=== PATIENT | female | born 1995 | race Caucasian/White ===

== ENCOUNTER 2017-04-22 15:51 | Emergency (ER) | payer MEDICAID ==
[2017-04-22] MEDS ORDERED: BUTALB/ACETAMINOPHEN/CAFFEINE 1 TAB EACH PO ONE (16:08)
--- NOTE | 2017-04-22 16:33 | RADIOLOGY REPORT (SQ) ---
EXAM DESCRIPTION: CT HEAD WITHOUT COMPLETED DATE/TIME: 04/22/2017 4:22 pm REASON FOR STUDY: right sided headache COMPARISON: None. TECHNIQUE: Axial images acquired through the brain without intravenous contrast. Images reviewed wi th bone, brain and subdural windows. Images stored on PACS. All CT scanners at this facility use dose modulation, iterative reconstruction, and/or weight based d osing when appropriate to reduce radiation dose to as low as reasonably achievable (ALARA). [facility]: Dose Right [facility]: CareDose [facility]: Dose Right [facility]: Teradose 4D [facility]: [place] RADIATION DOSE: CT Rad equipment meets quality standard of care and radiation dose reduction techniq ues were employed. CTDIvol: 64.6 mGy. DLP: 1034 mGy-cm. mGy. LIMITATIONS: None. FINDINGS: VENTRICLES: Normal size and contour. CEREBRUM: No masses. No hemorrhage. No midline shift. No evidence for acute infarction. Normal gra y/white matter differentiation. No areas of low density in the white matter. CEREBELLUM: No masses. No hemorrhage. No alteration of density. No evidence for acute infarction. EXTRAAXIAL SPACES: No fluid collections. No masses. ORBITS AND GLOBE: No intra- or extraconal masses. Normal contour of globe without masses. CALVARIUM: No fracture. PARANASAL SINUSES: No fluid or mucosal thickening. SOFT TISSUES: No mass or hematoma. OTHER: No other significant finding. IMPRESSION: NORMAL BRAIN CT WITHOUT CONTRAST. EVIDENCE OF ACUTE STROKE: NO. COMMENT: Quality ID # [id number]: Final reports with documentation of one or more dose reduction techniques (e.g., Automated exposure control, adjustment of the mA and/or kV according to patient size, use of iterative reconstruction technique) TECHNICAL DOCUMENTATION: JOB ID: [id number] [employer]- All Rights Reserved
--- NOTE | 2017-04-22 16:48 | ER Document Report ---
ED Headache - General Chief Complaint: Headache Stated Complaint: HEAD PAIN Time Seen by Provider: 04/22/17 16:07 Mode of Arrival: Ambulatory Information source: Patient Notes: Patient presents with severe right-sided headache. Nothing makes it better or worse. It did not radiate. It is constant. She states she has had this headache for approximately 7 months and has been gradually getting worse. She states it feels like "my head is going to explode". No previous history of migraines. She states that her headache started during and have continued since the ended. She has no nausea or vomiting. She has noticed some blurriness of vision. No other weakness numbness or tingling. No history of trauma. No cough cold congestion or sinus disease. TRAVEL OUTSIDE OF THE [place] IN LAST 30 DAYS: No - Related Data Allergies/Adverse Reactions: No Known Allergies Allergy (Verified 04/22/17 15:56) Past Medical History - General Information source: Patient - Social History Smoking Status: Current Every Day Smoker Chew tobacco use (# tins/day): No Frequency of alcohol use: None Drug Abuse: None Family History: Reviewed & Not Pertinent Patient has suicidal ideation: No Patient has homicidal ideation: No Renal/ Medical History: Denies: Hx Peritoneal Dialysis Psychiatric Medical History: Reports: Hx Attention Deficit Hyperactivity Disorder, Hx Bipolar Disorder, Hx Depression Past Surgical History: Reports: Hx Abdominal Surgery - esophagus, feeding tube Review of Systems - Review of Systems Constitutional: denies: Chills, Fever Cardiovascular: denies: Chest pain, Palpitations Respiratory: denies: Cough, Short of breath -: Yes All other systems reviewed and negative Physical Exam - Vital signs Vitals: Temp Pulse Resp BP Pulse Ox 98.8 F 88 14 123/76 100 04/22/17 16:01 04/22/17 16:01 04/22/17 16:01 04/22/17 16:01 04/22/17 16:01 Interpretation: Hypertensive - General General appearance: Appears well, Alert - HEENT Head: Normocephalic, Atraumatic Eyes: Normal Pupils: PERRL - Respiratory Respiratory status: No respiratory distress Chest status: Nontender Breath sounds: Normal Chest palpation: Normal - Cardiovascular Rhythm: Regular Heart sounds: Normal auscultation Murmur: No - Abdominal Inspection: Normal Distension: No distension Bowel sounds: Normal Tenderness: Nontender Organomegaly: No organomegaly - Back Back: Normal, Nontender - Extremities General upper extremity: Normal inspection, Nontender, Normal color, Normal ROM , Normal temperature General lower extremity: Normal inspection, Nontender, Normal color, Normal ROM , Normal temperature, Normal weight bearing. 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 The right eye does appear to be able to move into all 4 quadrants although it does not track equally with the left. Cerebellar coordination: Other - Patient has right upper extremity weakness and lack of coordination since due to a brachial plexus injury otherwise there is no new appreciation of weakness or coordination deficits. Motor strength normal: LUE, LLE, RLE Additional motor exam normals: [employer] Sensory: Normal - Psychological Associated symptoms: Normal affect, Normal mood - Skin Skin Temperature: Warm Skin Moisture: Dry Skin Color: Normal Course - Vital Signs Vital signs: Temp Pulse Resp BP Pulse Ox 98.8 F 88 14 123/76 100 04/22/17 16:01 04/22/17 16:01 04/22/17 16:01 04/22/17 16:01 04/22/17 16:01 - Diagnostic Test Radiology reviewed: Image reviewed, Reports reviewed - Head CT shows no evidence of acute pathology Discharge - Discharge Clinical Impression: Migraine headache Qualifiers: Migraine type: other Status migrainosus presence: with status migrainosus Intractability: intractable Qualified Code(s): G43.811 - Other migraine, intractable, with status migrainosus Condition: Stable Disposition: HOME, SELF-CARE Instructions: Headache ([facility]) Additional Instructions: Your blood pressure is mildly elevated. Please have this rechecked in 1 week by your doctor. Prescriptions: Butalb/Acetaminophen/Caffeine [Fioricet (50-325-40 mg) Tablet] 1 - 2 tab PO Q4H #20 tab Forms: Elevated Blood Pressure, Return to Work Referrals: JOHNATHAN SELF MD [COMMUNITY BASED STAFF] - 04/30/17
[2017-04-22 17:02] VITALS: BP 99/78
== END 2017-04-22 17:02 | disposition home or self-care (01) ==
LOC: ER 15:51
DX: G43.911 Migraine, unspecified, intractable, with status migrainosus (principal); H53.8 Other visual disturbances; F17.200 Nicotine dependence, unspecified, uncomplicated; H47.091 Other disorders of optic nerve, not elsewhere classified, right eye; R53.1 Weakness; R27.9 Unspecified lack of coordination; S14.3XXS Injury of brachial plexus, sequela; X58.XXXS Exposure to other specified factors, sequela
CPT/HCPCS: 99284; 70450; J3490

== ENCOUNTER 2017-06-16 12:46 | Emergency (ER) | payer MEDICAID ==
[2017-06-16 14:43] LABS: APPEARANCE,URINE SLIGHTLY-CLOUDY; BILIRUBIN,URINE NEGATIVE (NEGATIVE); COLOR,URINE AMBER; GLUCOSE, URINE NEGATIVE (NEGATIVE); KETONES,URINE NEGATIVE (NEGATIVE); LEUKOCYTE ESTERASE,URINE SMALL (NEGATIVE); NITRITE,URINE NEGATIVE (NEGATIVE); PROTEIN,URINE 30 mg/dL (NEGATIVE); URINE SPECIFIC GRAVITY 1.026
[2017-06-16 15:08] LABS: BACTERIA (WET MOUNT) 3+ BACTERIA SEEN; EPITHELIALS (WET MOUNT) 3+ EPITHELIALS SEEN; RBCS (WET MOUNT) NO RBCS SEEN; T.VAGINALIS (WET MOUNT) NO TRICHOMONAS SEEN; WBCS (WET MOUNT) 1+ WBCS SEEN; YEAST (WET MOUNT) NO YEAST SEEN
--- NOTE | 2017-06-16 15:38 | RADIOLOGY REPORT (SQ) ---
EXAM DESCRIPTION: U/S OB TRANSVAG W/DOPPLER COMPLETED DATE/TIME: 06/16/2017 3:27 pm REASON FOR STUDY: pelvic pain COMPARISON: None. TECHNIQUE: Transvaginal static and realtime grayscale images acquired of the pelvis. Additional eh cted spectral and color Doppler images recorded. All images stored on PACs. BHCG: Pending. LIMITATIONS: None. FINDINGS: UTERUS: No visualized intrauterine . RIGHT ADNEXA: Normal ovary with normal vascular flow. No adnexal free fluid. No adnexal masses. LEFT ADNEXA: Normal ovary with normal vascular flow. No adnexal free fluid. No adnexal masses. FREE FLUID: None. OTHER: No other significant finding. IMPRESSION: NO VISUALIZED INTRA- OR EXTRAUTERINE . bHCG LEVEL NOT AVAILABLE FOR CORRELATION WITH US FINDINGS. ECTOPIC CANNOT BE EXCLUDED. FOLLOW-UP ULTRASOUND AND SERIAL BHCG LEVELS STRONGLY RECOMMENDED TO ACCURATELY ASSESS STATU S. TECHNICAL DOCUMENTATION: JOB ID: [id number] [employer]- All Rights Reserved
[2017-06-16] MEDS ORDERED: METRONIDAZOLE 500 MG TABLET PO ONE (16:12)
--- NOTE | 2017-06-16 16:15 | ER Document Report ---
HPI - HPI Pain Level: 1 Context: Patient is a 21-year-old female previous with stillborn at 32 weeks 9 months ago presents for evaluation. Admits to vaginal discharge with nausea for the past 3 weeks. States her last menstrual period was May 06. States she has not taken a test prior to arrival today. 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 Also history of right brachial plexus injury at . - CONSTITUTIONAL Constitutional: DENIES: Fever, Chills - EENT EENT: DENIES: Sore Throat, Ear Pain, Eye problems - NEURO Neurology: DENIES: Headache - CARDIOVASCULAR Cardiovascular: DENIES: Chest pain - RESPIRATORY Respiratory: DENIES: Trouble Breathing, Coughing - GASTROINTESTINAL Gastrointestinal: REPORTS: Abdominal Pain - lower. DENIES: Black / Bloody Stools - URINARY Urinary: DENIES: Dysuria, Urgency, Frequency - REPRODUCTIVE Reproductive: DENIES: : - MUSCULOSKELETAL Musculoskeletal: DENIES: Extremity pain Past Medical History - Social History Smoking Status: Current Every Day Smoker Chew tobacco use (# tins/day): No Frequency of alcohol use: None Drug Abuse: None Family History: Reviewed & Not Pertinent Patient has suicidal ideation: No Patient has homicidal ideation: No Renal/ Medical History: Denies: Hx Peritoneal Dialysis Psychiatric Medical History: Reports: Hx Attention Deficit Hyperactivity Disorder, Hx Bipolar Disorder, Hx Depression Past Surgical History: Reports: Hx Abdominal Surgery - esophagus, feeding tube Vertical Provider Document - CONSTITUTIONAL Agree With Documented VS: Yes Notes: PHYSICAL EXAM GENERAL: Alert, interacts well. LUNGS: Clear to auscultation bilaterally, no wheezes, rales, or rhonchi. No respiratory distress. HEART: Regular rate and rhythm. No murmurs, gallops, or rubs. ABDOMEN: Soft, nondistended, nontender. No guarding, rebound, or rigidity.. Bowel sounds present in all 4 quadrants. FEMALE : Normal external exam. No evidence of lesions, lacerations, bruising or vesicles. Speculum exam normal cervix closed. No evidence of vaginal discharge with odor. No evidence of lesions. No vaginal bleeding. NEUROLOGICAL: Alert and oriented x4. Normal speech. PSYCH: Normal affect, normal mood. SKIN: Warm, dry, normal turgor. No rashes or lesions noted. - INFECTION CONTROL TRAVEL OUTSIDE OF THE [place] IN LAST 30 DAYS: No - RESPIRATORY O2 Sat by Pulse Oximetry: 100 Course - Re-evaluation Re-evalutation: 06/16/17 16:12 Patient is a 21-year-old female is hemodynamically stable, no acute distress and afebrile. Patient with a beta-hCG of 220. Ultrasound does not show any evidence of extrauterine inflammation, free fluid. Patient's exam otherwise benign. Discussed with her to follow-up with the health department and to start taking vitamins. Patient's wet mount does show evidence of bacterial vaginosis. Will treat with Flagyl for 1 week. Otherwise patient is stable for discharge home. - Vital Signs Vital signs: Temp Pulse Resp BP Pulse Ox 99.1 F 93 H 16 113/71 100 06/16/17 13:19 06/16/17 13:19 06/16/17 13:19 06/16/17 13:19 06/16/17 13:19 - Laboratory Laboratory results interpreted by me: 06/16/17 06/16/17 14:15 14:40 Beta HCG, Quant 220.36 H Urine Protein 30 H Urine Urobilinogen 2.0 H Ur Leukocyte Esterase SMALL H Urine HCG, Qual POSITIVE H - Diagnostic Test Radiology reviewed: Reports reviewed Discharge - Discharge Clinical Impression: Bacterial vaginal infection Qualifiers: Weeks of gestation: less than 8 weeks Qualified Code(s): Z3A.01 - Less than 8 weeks gestation of Condition: Good Disposition: HOME, SELF-CARE Instructions: ([facility]), Vaginosis, Bacterial ([facility]) Prescriptions: Metronidazole [Flagyl 500 mg Tablet] 500 mg PO BID #14 tablet [facility] - 06/18/17
[2017-06-16 16:32] LABS: CHLAM PCR NOT DETECTED (NOT DETECT); GON PCR NOT DETECTED (NOT DETECT)
[2017-06-16 16:36] VITALS: BP 104/61
== END 2017-06-16 16:36 | disposition home or self-care (01) ==
LOC: ER 12:46
DX: O23.591 Infection of other part of genital tract in pregnancy, first trimester (principal); B96.89 Other specified bacterial agents as the cause of diseases classified elsewhere; O26.891 Other specified pregnancy related conditions, first trimester; R11.0 Nausea; R10.30 Lower abdominal pain, unspecified; O99.331 Smoking (tobacco) complicating pregnancy, first trimester; Z3A.01 Less than 8 weeks gestation of pregnancy; Z87.59 Personal history of other complications of pregnancy, childbirth and the puerperium
CPT/HCPCS: 99284; 36415; 87210; 84702; 81025; 81001; 87491; 87591; 76817; 93976; J3490

== ENCOUNTER → 2017-07-11 | Outpatient (CLI) | payer MEDICAID | LOC: LAB 16:18 | PROVIDERS: ATTEND Nurse Practitioner Women's Health | DX: O36.80X0 Pregnancy with inconclusive fetal viability, not applicable or unspecified (principal) | CPT/HCPCS: 36415; 84702 ==

== ENCOUNTER → 2017-07-16 | Outpatient (CLI) | payer MEDICAID ==
[2017-07-16 13:52] LABS: ANION GAP 11 (5-19); BLOOD UREA NITROGEN 7 mg/dL (7-20); CALCIUM 9.8 mg/dL (8.4-10.2); CARBON DIOXIDE 25 mmol/L (22-30); CHLORIDE 104 mmol/L (98-107); GLUCOSE 103 mg/dL (75-110); POTASSIUM 4.6 mmol/L (3.6-5.0)
== END ==
LOC: LAB 13:09
PROVIDERS: ATTEND Nurse Practitioner Family
DX: O36.80X0 Pregnancy with inconclusive fetal viability, not applicable or unspecified (principal); N28.81 Hypertrophy of kidney; R51 Headache; Z3A.00 Weeks of gestation of pregnancy not specified
CPT/HCPCS: 36415; 80048; 84702

== ENCOUNTER 2017-07-17 18:30 | Emergency (ER) | payer MEDICAID ==
--- NOTE | 2017-07-17 19:16 | ER Document Report ---
ED Medical Screen (RME) - General Chief Complaint: OB Problem (<20wks) Stated Complaint: ABDOMINAL PAIN Time Seen by Provider: 07/17/17 19:09 Notes: Patient presents from [facility] due to pelvic cramping and to rule out ectopic . Patient has not had a formal ultrasound to validate intrauterine . Denies any vaginal discharge loss of fluids or bleeding. LMP ~ mid May 2017 I have greeted and performed a rapid initial assessment of this patient. A comprehensive ED assessment and evaluation of the patient, analysis of test results and completion of the medical decision making process will be conducted by additional ED providers. PHYSICAL EXAMINATION: GENERAL: Well-appearing, well-nourished and in no acute distress. HEAD: Atraumatic, normocephalic. EYES: Pupils equal round extraocular movements intact, conjunctiva are normal. ENT: Nares patent NECK: Normal range of motion LUNGS: No respiratory distress Musculoskeletal: Normal range of motion NEUROLOGICAL: Normal speech, normal gait. PSYCH: Normal mood, normal affect. SKIN: Warm, Dry, normal turgor, no rashes or lesions noted. TRAVEL OUTSIDE OF THE [place] IN LAST 30 DAYS: No - Related Data Allergies/Adverse Reactions: No Known Allergies Allergy (Verified 07/17/17 18:31) Past Medical History - Social History Frequency of alcohol use: None Drug Abuse: None Renal/ Medical History: Denies: Hx Peritoneal Dialysis Psychiatric Medical History: Reports: Hx Attention Deficit Hyperactivity Disorder, Hx Bipolar Disorder, Hx Depression Past Surgical History: Reports: Hx Abdominal Surgery - esophagus, feeding tube, Hx Section - demise at 32wks Physical Exam - Vital signs Vitals: Temp Pulse Resp BP Pulse Ox 99.0 F 92 H 16 120/66 100 07/17/17 18:41 07/17/17 18:41 07/17/17 18:41 07/17/17 18:41 07/17/17 18:41 Course - Vital Signs Vital signs: Temp Pulse Resp BP Pulse Ox 99.0 F 92 H 16 120/66 100 07/17/17 18:41 07/17/17 18:41 07/17/17 18:41 07/17/17 18:41 07/17/17 18:41
[2017-07-17 19:57] LABS: APPEARANCE,URINE SLIGHTLY-CLOUDY; BILIRUBIN,URINE NEGATIVE (NEGATIVE); COLOR,URINE YELLOW; GLUCOSE, URINE 50 mg/dL (NEGATIVE); KETONES,URINE NEGATIVE (NEGATIVE); LEUKOCYTE ESTERASE,URINE MODERATE (NEGATIVE); NITRITE,URINE NEGATIVE (NEGATIVE); PROTEIN,URINE NEGATIVE (NEGATIVE); URINE SPECIFIC GRAVITY 1.023; UROBILINOGEN,URINE NEGATIVE mg/dL (<2.0)
--- NOTE | 2017-07-17 20:34 | RADIOLOGY REPORT (SQ) ---
EXAM DESCRIPTION: U/S 1TRIMESTER/1GEST W/DOPPLER COMPLETED DATE/TIME: 07/17/2017 8:25 pm REASON FOR STUDY: r/o ectopic COMPARISON: 06/16/2017 TECHNIQUE: Transvaginal static and realtime grayscale images acquired of the pelvis. Additional eh cted spectral and color Doppler images recorded. All images stored on PACs. bHCG: Not available. LIMITATIONS: None. FINDINGS: FETUS: Living intrauterine . EGA: A weeks 3 days OWEN: 02/23/2018 FHR: 168 beats per minute. SUBCHORIONIC BLEED: Yes SIZE OF BLEED: 1.0 x 1.2 x 2.2 cm. UTERUS: No masses. No anomalies. CERVICAL LENGTH: 2.2 cm Closed. RIGHT ADNEXA: Normal ovary with normal vascular flow in corpus luteal cyst. No adnexal free fluid. No adnexal masses. LEFT ADNEXA: Ovary not identified. No adnexal free fluid. No adnexal masses. FREE FLUID: None. OTHER: No other significant finding. IMPRESSION: LIVING INTRAUTERINE . EGA 8 WEEKS 3 DAYS. SMALL SUBCHORIONIC HEMATOMA. Trimester of : First - 0 to 13 weeks. TECHNICAL DOCUMENTATION: JOB ID: [id number] [employer]- All Rights Reserved Reading location - IP/workstation name: [email or web address]
--- NOTE | 2017-07-17 21:29 | ER Document Report ---
ED General - General Chief Complaint: OB Problem (<20wks) Stated Complaint: ABDOMINAL PAIN Time Seen by Provider: 07/17/17 19:09 Notes: Patient is a 21 year old female who presents with concerns of 1 week of lower abdominal pain. The patient is following with the health department, has not yet had an ultrasound confirming an intrauterine , was increasingly concerned about her ongoing abdominal pain. She describes this as an intermittent, cramping, aching lower abdominal pain. Nothing improves or worsens that pain. She had a loss of a previous at 32 weeks gestation and did require for removal of the fetus. She denies any vaginal bleeding or vaginal discharge. No dysuria, vomiting, or diarrhea. No prior history of ectopic pregnancies or pelvic inflammatory disease. TRAVEL OUTSIDE OF THE [place] IN LAST 30 DAYS: No - Related Data Allergies/Adverse Reactions: No Known Allergies Allergy (Verified 07/17/17 18:31) Past Medical History - General Information source: Patient - Social History Smoking Status: Current Some Day Smoker Frequency of alcohol use: None Drug Abuse: None Lives with: Spouse/Significant other Family History: Reviewed & Not Pertinent Patient has suicidal ideation: No Patient has homicidal ideation: No Renal/ Medical History: Denies: Hx Peritoneal Dialysis Psychiatric Medical History: Reports: Hx Attention Deficit Hyperactivity Disorder, Hx Bipolar Disorder, Hx Depression Past Surgical History: Reports: Hx Abdominal Surgery - esophagus, feeding tube, Hx Section - demise at 32wks Review of Systems - Review of Systems Notes: Constitutional: Negative for fever. HENT: Negative for sore throat. Eyes: Negative for visual changes. Cardiovascular: Negative for chest pain. Respiratory: Negative for shortness of breath. Gastrointestinal: Positive for lower abdominal pain Genitourinary: Negative for dysuria. Musculoskeletal: Negative for back pain. Skin: Negative for rash. Neurological: Negative for headaches, weakness or numbness. 10 point ROS negative except as marked above and in HPI. Physical Exam - Vital signs Vitals: Temp Pulse Resp BP Pulse Ox 99.0 F 92 H 16 120/66 100 07/17/17 18:41 07/17/17 18:41 07/17/17 18:41 07/17/17 18:41 07/17/17 18:41 Interpretation: Normal Notes: PHYSICAL EXAMINATION: GENERAL: Well-appearing, well-nourished and in no acute distress. HEAD: Atraumatic, normocephalic. EYES: Pupils equal round and reactive to light, extraocular movements intact, sclera anicteric, conjunctiva are normal. ENT: nares patent, oropharynx clear without exudates. Moist mucous membranes. NECK: Normal range of motion, supple without lymphadenopathy LUNGS: Breath sounds clear to auscultation bilaterally and equal. No wheezes rales or rhonchi. HEART: Regular rate and rhythm without murmurs ABDOMEN: Soft, nontender, normoactive bowel sounds. No guarding, no rebound. No masses appreciated. EXTREMITIES: Normal range of motion, no pitting or edema. No cyanosis. NEUROLOGICAL: No focal neurological deficits. Moves all extremities spontaneously and on command. PSYCH: Normal mood, normal affect. SKIN: Warm, Dry, normal turgor, no rashes or lesions noted. Course - Re-evaluation Re-evalutation: 07/17/17 21:28 Patient is currently and presenting with lower abdominal pain. No vaginal bleeding or discharge. Ultrasound shows a viable intrauterine , appropriate cardiac activity and active movement. Patient denies any dysuria and urinalysis is not consistent with an acute urinary tract infection. The patient does not have any focal right lower quadrant tenderness , rebound or guarding to suggest acute appendicitis. No right upper quadrant tenderness to suggest cholestasis of or an acute cholecystitis. Patient has tolerated oral intake here in the emergency department without difficulty. Vitals are within normal limits. No vaginal bleeding. At this time will discharge with return precautions and follow-up recommendations. Verbal discharge instructions given a the bedside and opportunity for questions given. Medication warnings reviewed. Patient is in agreement with this plan and has verbalized understanding of return precautions and the need for primary care follow-up in the next 24-72 hours. - Vital Signs Vital signs: Temp Pulse Resp BP Pulse Ox 97.8 F 79 16 113/59 L 100 07/17/17 21:40 07/17/17 21:40 07/17/17 21:40 07/17/17 21:40 07/17/17 21:40 - Laboratory Laboratory results interpreted by me: 07/17/17 07/17/17 19:20 19:39 Beta HCG, Quant 065598.00 H Urine Glucose (UA) 50 H Ur Leukocyte Esterase MODERATE H - Diagnostic Test Radiology reviewed: Reports reviewed Discharge - Discharge Clinical Impression: First trimester , related bilateral lower abdominal pain, antepartum Condition: Good Disposition: HOME, SELF-CARE Additional Instructions: You were seen for abdominal pain during . Your ultrasound and labs are normal today. The exact cause your pain is uncertain but is likely related to your developing baby. Please follow-up with your [employer]ATOR in the next 24-48 hours. Return to the emergency department immediately if you have worsening of your pain, have persistent vomiting, develop a fever of greater than 100.4F, begin to have vaginal bleeding, or any other symptoms that are worrisome to you.
[2017-07-17 21:41] VITALS: BP 113/59
== END 2017-07-17 21:46 | disposition home or self-care (01) ==
LOC: ER 18:30
DX: O26.891 Other specified pregnancy related conditions, first trimester (principal); R10.31 Right lower quadrant pain; R10.32 Left lower quadrant pain; Z3A.08 8 weeks gestation of pregnancy; F17.200 Nicotine dependence, unspecified, uncomplicated
CPT/HCPCS: 36415; 76801; 81001; 84702; 93976; 99284

== ENCOUNTER 2017-09-01 08:46 | Emergency (ER) | payer MEDICAID ==
--- NOTE | 2017-09-01 09:44 | ER Document Report ---
ED GI/ - General Chief Complaint: Abdominal Cramping Stated Complaint: ABDOMINAL PAIN Time Seen by Provider: 09/01/17 09:39 Notes: The patient is a 21-year-old female, [id number] , presents with several days of lower abdominal cramping. She had a 32 week miscarriage several months ago. Denies vaginal bleeding, dysuria, hematuria, flank pain, leakage of fluids, nausea or vomiting. TRAVEL OUTSIDE OF THE [place] IN LAST 30 DAYS: No - Related Data Allergies/Adverse Reactions: No Known Allergies Allergy (Verified 09/01/17 08:46) Past Medical History - General Information source: Patient - Social History Smoking Status: Current Every Day Smoker Chew tobacco use (# tins/day): No Frequency of alcohol use: None Drug Abuse: None Family History: Reviewed & Not Pertinent Patient has suicidal ideation: No Patient has homicidal ideation: No Renal/ Medical History: Denies: Hx Peritoneal Dialysis Psychiatric Medical History: Reports: Hx Attention Deficit Hyperactivity Disorder, Hx Bipolar Disorder, Hx Depression Past Surgical History: Reports: Hx Abdominal Surgery - esophagus, feeding tube, Hx Section - demise at 32wks Review of Systems - Review of Systems Notes: REVIEW OF SYSTEMS: CONSTITUTIONAL: -fevers, -chills EENT: -eye pain, -difficulty swallowing, -nasal congestion CARDIOVASCULAR: -chest pain, -syncope. RESPIRATORY: -cough, -SOB GASTROINTESTINAL: +abdominal cramping, -nausea, -vomiting, -diarrhea GENITOURINARY: -dysuria, -hematuria MUSCULOSKELETAL: -back pain, -neck pain SKIN: -rash or skin lesions. HEMATOLOGIC: -easy bruising or bleeding. LYMPHATIC: -swollen, enlarged glands. NEUROLOGICAL: -altered mental status or loss of consciousness, -headache, - neurologic symptoms PSYCHIATRIC: -anxiety, -depression. ALL OTHER SYSTEMS REVIEWED AND NEGATIVE. Physical Exam - Vital signs Vitals: Temp Pulse Resp BP Pulse Ox 98.8 F 102 H 16 106/55 L 97 09/01/17 08:58 09/01/17 08:58 09/01/17 08:58 09/01/17 08:58 09/01/17 08:58 - Notes Notes: PHYSICAL EXAMINATION: GENERAL: Well-appearing, well-nourished and in no acute distress. HEAD: Atraumatic, normocephalic. EYES: Pupils equal round and reactive to light, extraocular movements intact, sclera anicteric, conjunctiva are normal. ENT: nares patent, oropharynx clear without exudates. Moist mucous membranes. NECK: Normal range of motion, supple without lymphadenopathy LUNGS: Breath sounds clear to auscultation bilaterally and equal. No wheezes rales or rhonchi. HEART: Regular rate and rhythm without murmurs ABDOMEN: Soft, nontender, normoactive bowel sounds. No guarding, no rebound. No masses appreciated. EXTREMITIES: Normal range of motion, no pitting or edema. No cyanosis. NEUROLOGICAL: Cranial nerves grossly intact. Normal speech, normal gait. Normal sensory and motor exams. PSYCH: Normal mood, normal affect. SKIN: Warm, Dry, normal turgor, no rashes or lesions noted. Course - Re-evaluation Re-evalutation: Bedside US shows a single IUP with FHR 152 and BPD consistent with [id number]. Urinalysis does not show evidence of a UTI she has no abdominal tenderness, vaginal bleeding or leakage of fluids. She has an appointment with OB. Instructed her to follow-up as scheduled. - Vital Signs Vital signs: Temp Pulse Resp BP Pulse Ox 98.8 F 102 H 16 106/55 L 97 09/01/17 08:58 09/01/17 08:58 09/01/17 08:58 09/01/17 08:58 09/01/17 08:58 - Laboratory Laboratory results interpreted by me: 09/01/17 09:50 Urine Urobilinogen 2.0 H Ur Leukocyte Esterase TRACE H Discharge - Discharge Clinical Impression: Abdominal cramping affecting Condition: Stable Disposition: HOME, SELF-CARE Additional Instructions: Your bedside ultrasound today shows a single intrauterine fetus and it is consistent with your dates and has a normal heart rate. Follow-up with your OB as scheduled. Tylenol for any pain and stay hydrated by drinking plenty of water. : You are . care is best started as early in as possible. If you're unsure about continuing this , you should discuss this with your physician or with harvest worker [facility] at [facility]. You should take only medications approved by your physician. Acetaminophen can safely be taken for minor pains. As a rule, medication for chronic conditions such as asthma or seizures can safely be continued. You should discuss with the physician every medicine you take. Any regular exercise program can be continued. Talk to your physician, however, before engaging in competitive or demanding sports. Alcohol, smoking, and "street drugs" are dangerous to your baby. Cocaine is especially dangerous. Don't use any illicit drugs! THREATENED MISCARRIAGE: You have been evaluated for a possible miscarriage. At this time, there is no indication that a miscarriage will occur. Most women with your symptoms will go on to have a perfectly normal baby. However, careful observation will be necessary. A miscarriage occurs when the fetus is abnormal. There is no medicine or treatment for it. You should rest in bed until the symptoms have resolved. Do not douche or have sex for at least a week, or until OK'd by the doctor. Call the doctor or return for re-examination if there is an increase in bleeding or cramping, or passage of tissue. FOLLOW-UP CARE: If you have been referred to a physician for follow-up care, call the physician s office for an appointment as you were instructed or within the next two days. If you experience worsening or a significant change in your symptoms (very heavy bleeding with large clots of blood, passage of tissue, more severe abdominal / pelvic pain or cramping, feeling faint or severe weakness, fever, etc.), notify the physician immediately or return to the Emergency Department at any time for re-evaluation. OBSTETRIC-GYNECOLOGIC (OB-HONING MACHINE SET UP OPERATOR TOOL) PHYSICIANS IN [place]: The [facility] [address] [place], [place] [phone] [facility] [address] [place] [address] [phone] For active duty and dependents diagnosed with a threatened or miscarriage, you should follow up in the following manner: Standard patients who have a local civilian provider should follow up with that provider. Patients of the Family Practice Clinic should call your Team Nurse at 8: 00 am the following morning for further instructions. If you are neither a Standard patient nor a patient of the Family Practice Clinic, you should follow up at the [facility] ([facility]) . Patients already enrolled in the [facility] OB Clinic, Prime patients not assigned to the Family Practice Clinic, and Active Duty patients not assigned to Family Practice Clinic should report to the [facility] Lab at 8:00 am the next morning that the [facility] OB Clinic is open and then you will be seen in the OB Clinic at 11:00 am. Referrals: CLAUDIA FERMIN MD [ACTIVE STAFF] - Follow up as needed
[2017-09-01 10:14] LABS: APPEARANCE,URINE SLIGHTLY-CLOUDY; BILIRUBIN,URINE NEGATIVE (NEGATIVE); COLOR,URINE YELLOW; GLUCOSE, URINE NEGATIVE (NEGATIVE); KETONES,URINE NEGATIVE (NEGATIVE); LEUKOCYTE ESTERASE,URINE TRACE (NEGATIVE); NITRITE,URINE NEGATIVE (NEGATIVE); PROTEIN,URINE NEGATIVE (NEGATIVE); URINE SPECIFIC GRAVITY 1.025
[2017-09-01 11:13] VITALS: BP 102/59
== END 2017-09-01 11:13 | disposition home or self-care (01) ==
LOC: ER 08:46
DX: O26.892 Other specified pregnancy related conditions, second trimester (principal); R10.30 Lower abdominal pain, unspecified; O99.332 Smoking (tobacco) complicating pregnancy, second trimester; Z3A.15 15 weeks gestation of pregnancy; Z87.59 Personal history of other complications of pregnancy, childbirth and the puerperium
CPT/HCPCS: 81001; 99284

== ENCOUNTER 2017-10-01 17:28 | Emergency (ER) | payer MEDICAID ==
[2017-10-01 17:36] VITALS: BP 120/63
--- NOTE | 2017-10-01 18:13 | ER Document Report ---
ED Headache - General Chief Complaint: Headache Stated Complaint: HEADACHE Time Seen by Provider: 10/01/17 18:10 Notes: Chief complaint: Headache History of complain:( obtained from----patient) 22 years old female who is 20 week . She states that he is a high risk . Presents today with several month history of headache. She was here in the past and had CAT scan done. The headache is persistent with on and off exacerbation. Denies any nausea vomiting. Denies any focal weakness numbness tingling sensation. Onset: As above Duration: Last several months Severity: Moderate to severe Quality: Sharp Context: Possible neck sprain Exacerbating factor and relieving factors: None REVIEW OF SYSTEMS: CONSTITUTIONAL : Denies fever, chills, or sweats. Denies recent illness. EENT: Denies eye, ear, throat, or mouth pain or symptoms. Denies nasal or sinus congestion or discharge. Denies throat, tongue, or mouth swelling or difficulty swallowing. CARDIOVASCULAR: Denies chest pain. Denies palpitations or racing or irregular heart beat. Denies ankle edema. RESPIRATORY: Denies cough, cold, or chest congestion. Denies shortness of breath, difficulty breathing, or wheezing. GASTROINTESTINAL: Denies distention. Denies nausea, vomiting, or diarrhea. Denies blood in vomitus, stools, or per rectum. Denies black, tarry stools. Denies constipation. GENITOURINARY: Denies difficulty urinating, painful urination, burning, frequency, blood in urine, or discharge. FEMALE GENITOURINARY: Denies vaginal bleeding, heavy or abnormal periods, irregular periods. Denies vaginal discharge or odor. MUSCULOSKELETAL: Denies back or neck pain or stiffness. Denies joint pain or swelling. SKIN: Denies rash, lesions or sores. HEMATOLOGIC : Denies easy bruising or bleeding. LYMPHATIC: Denies swollen, enlarged glands. NEUROLOGICAL: Denies confusion or altered mental status. Denies passing out or loss of consciousness. Denies dizziness or lightheadedness. Denies headache. Denies weakness or paralysis or loss of use of either side. Denies problems with gait or speech. Denies sensory loss, numbness, or tingling. Denies seizures. PSYCHIATRIC: Denies anxiety or stress. Denies depression, suicidal ideation, or homicidal ideation. ALL OTHER SYSTEMS REVIEWED AND NEGATIVE. PHYSICAL EXAMINATION: GENERAL: Well-appearing, well-nourished and in no acute distress. HEAD: Atraumatic, normocephalic. EYES: Pupils equal round and reactive to light, extraocular movements intact, conjunctiva are normal. ENT: Nares patent, oropharynx clear without exudates. Moist mucous membranes. NECK: Examination of the neck paraspinal muscles were extremely tender on palpation. Normal range of motion, supple without lymphadenopathy LUNGS: Breath sounds clear to auscultation bilaterally and equal. No wheezes rales or rhonchi. HEART: Regular rate and rhythm without murmurs ABDOMEN: Soft, nontender, nondistended abdomen. No guarding, no rebound. No masses appreciated. Examination of genitals-deferred Musculoskeletal: Normal range of motion, no pitting or edema. No cyanosis. NEUROLOGICAL: Cranial nerves grossly intact. Normal speech, normal gait. Normal sensory, motor exams PSYCH: Normal mood, normal affect. SKIN: Warm, Dry, normal turgor, no rashes or lesions noted. Dictation was performed using [employer] voice recognition software TRAVEL OUTSIDE OF THE [place] IN LAST 30 DAYS: No - Related Data Allergies/Adverse Reactions: No Known Allergies Allergy (Verified 10/01/17 17:33) Past Medical History - Social History Smoking Status: Current Every Day Smoker Cigarette use (# per day): No Chew tobacco use (# tins/day): No Family History: Reviewed & Not Pertinent Patient has suicidal ideation: No Patient has homicidal ideation: No Renal/ Medical History: Denies: Hx Peritoneal Dialysis Psychiatric Medical History: Reports: Hx Attention Deficit Hyperactivity Disorder, Hx Bipolar Disorder, Hx Depression Past Surgical History: Reports: Hx Abdominal Surgery - esophagus, feeding tube, Hx Section - demise at 32wks Review of Systems - Review of Systems Notes: Dictated Physical Exam - Vital signs Vitals: Temp Pulse Resp BP Pulse Ox 98.7 F 86 18 120/63 100 10/01/17 17:35 10/01/17 17:35 10/01/17 17:35 10/01/17 17:35 10/01/17 17:35 - Notes Notes: Dictated Course - Re-evaluation Re-evalutation: 10/01/17 18:12 Patient was explained that since she is especially high risk that I cannot give anything other than Tylenol. She has been asked to follow- up with her primary care physician for possible referral to chiropractor. - Vital Signs Vital signs: Temp Pulse Resp BP Pulse Ox 98.7 F 86 18 120/63 100 10/01/17 17:35 10/01/17 17:35 10/01/17 17:35 10/01/17 17:35 10/01/17 17:35 Discharge - Discharge Clinical Impression: Chronic headache Qualifiers: Headache type: tension-type Intractability: intractable Qualified Code(s): G44.221 - Chronic tension-type headache, intractable Cervical sprain Qualifiers: Encounter type: initial encounter Qualified Code(s): S13.9XXA - Sprain of joints and ligaments of unspecified parts of neck, initial encounter Condition: Fair Disposition: HOME, SELF-CARE Instructions: Headache ([facility]) Referrals: TAMIE MELTON MD [Primary Care Provider] - Follow up as needed
== END 2017-10-01 18:15 | disposition home or self-care (01) ==
LOC: ER 17:28
DX: O99.352 Diseases of the nervous system complicating pregnancy, second trimester (principal); G44.221 Chronic tension-type headache, intractable; O9A.212 Injury, poisoning and certain other consequences of external causes complicating pregnancy, second trimester; S13.9XXA Sprain of joints and ligaments of unspecified parts of neck, initial encounter; O99.332 Smoking (tobacco) complicating pregnancy, second trimester; Z3A.20 20 weeks gestation of pregnancy
CPT/HCPCS: 99283

== ENCOUNTER 2017-10-14 15:31 | Emergency (ER) | payer MEDICAID ==
[2017-10-14] MEDS ORDERED: LIDOCAINE 5% (700 MG) TRANSDERMAL ADH..PATCH TP ONE (18:23)
--- NOTE | 2017-10-14 18:23 | ER Document Report ---
ED General - General Chief Complaint: Leg Pain Stated Complaint: RIGHT LEG PAIN Time Seen by Provider: 10/14/17 16:41 TRAVEL OUTSIDE OF THE [place] IN LAST 30 DAYS: No - HPI Patient complains to provider of: Right leg pain Notes: Patient was sent in from [facility]ELOP[facility]NAGER's office due to right leg pain states pain goes down from her buttocks down the back of her right leg into her heel. Patient is approximate 7 months . Patient denies any injuries denies any vaginal bleeding abdominal pain fever chills nausea vomiting diarrhea denies a history of DVT in the past - Related Data Allergies/Adverse Reactions: No Known Allergies Allergy (Verified 10/14/17 15:33) Past Medical History - Social History Smoking Status: Current Every Day Smoker Chew tobacco use (# tins/day): No Frequency of alcohol use: None Drug Abuse: None Family History: Reviewed & Not Pertinent Patient has suicidal ideation: No Patient has homicidal ideation: No Renal/ Medical History: Denies: Hx Peritoneal Dialysis Psychiatric Medical History: Reports: Hx Attention Deficit Hyperactivity Disorder, Hx Bipolar Disorder, Hx Depression Past Surgical History: Reports: Hx Abdominal Surgery - esophagus, feeding tube, Hx Section - demise at 32wks Review of Systems - Review of Systems Constitutional: No symptoms reported EENT: No symptoms reported Cardiovascular: No symptoms reported Respiratory: No symptoms reported Gastrointestinal: No symptoms reported Genitourinary: No symptoms reported Female Genitourinary: No symptoms reported Musculoskeletal: Other - Leg pain Skin: No symptoms reported Hematologic/Lymphatic: No symptoms reported Neurological/Psychological: No symptoms reported Physical Exam - Vital signs Vitals: Temp Pulse Resp BP Pulse Ox 98.6 F 97 20 111/62 98 10/14/17 15:49 10/14/17 15:49 10/14/17 15:49 10/14/17 15:49 10/14/17 15:49 Interpretation: Normal - General General appearance: Appears well, Alert - HEENT Head: Normocephalic, Atraumatic Eyes: Normal Pupils: PERRL - Respiratory Respiratory status: No respiratory distress Chest status: Nontender Breath sounds: Normal Chest palpation: Normal - Cardiovascular Rhythm: Regular Heart sounds: Normal auscultation Murmur: No - Abdominal Inspection: Normal Distension: No distension Bowel sounds: Normal Tenderness: Nontender Organomegaly: No organomegaly - Back Back: Normal, Nontender - Extremities General upper extremity: Normal inspection, Nontender, Normal color, Normal ROM , Normal temperature General lower extremity: Normal inspection, Nontender, Normal color, Normal ROM , Normal temperature, Normal weight bearing, Other - Symmetric shape patient does have some reproduction of symptoms when sitting on her right buttocks. No : Edema, Ilsa's sign - Neurological Neuro grossly intact: Yes Cognition: Normal Orientation: AAOx4 Burton Coma Scale Eye Opening: Spontaneous Burton Coma Scale Verbal: Oriented Timoteo Coma Scale Motor: Obeys Commands Timoteo Coma Scale Total: 15 Speech: Normal Motor strength normal: LUE, RUE, LLE, RLE Sensory: Normal - Psychological Associated symptoms: Normal affect, Normal mood - Skin Skin Temperature: Warm Skin Moisture: Dry Skin Color: Normal Course - Re-evaluation Re-evalutation: 10/14/17 21:04 Ultrasound negative for DVT signs and symptoms are more consistent with sciatica. Patient is continue with Tylenol and also recommended lidocaine patches - Vital Signs Vital signs: Temp Pulse Resp BP Pulse Ox 98.2 F 72 16 110/47 L 100 10/14/17 18:26 10/14/17 18:26 10/14/17 18:26 10/14/17 18:26 10/14/17 18:26 Discharge - Discharge Clinical Impression: Right leg pain Qualifiers: Weeks of gestation: unspecified Qualified Code(s): Z34.90 - Encounter for supervision of normal , unspecified, unspecified trimester Condition: Good Disposition: HOME, SELF-CARE Instructions: Leg Pain Nonspecific ([facility]), Sciatica ([facility]) Additional Instructions: Your evaluation today shows no signs of a DVT. Her symptoms sound more consistent with sciatica or pain involving the nerve that runs from the top of the leg behind the thigh and behind the knee into the heel. Because you are treatment modality will mostly consist of Tylenol he may try the over- the-counter lidocaine patches return to the ER if symptoms worsen high recommend follow-up with your primary care physician. Referrals: TAMIE MELTON MD [Primary Care Provider] - Follow up in 3-5 days
[2017-10-14 18:28] VITALS: BP 110/47
== END 2017-10-14 18:38 | disposition home or self-care (01) ==
LOC: ER 15:31
DX: O26.892 Other specified pregnancy related conditions, second trimester (principal); M79.604 Pain in right leg; Z3A.22 22 weeks gestation of pregnancy; O99.332 Smoking (tobacco) complicating pregnancy, second trimester
CPT/HCPCS: 99283; 93971; J3490

== ENCOUNTER 2017-11-18 17:57 | Emergency (ER) | payer MEDICAID ==
[2017-11-18] MEDS ORDERED: PREDNISONE 20 MG TABLET PO ONE (18:46)
--- NOTE | 2017-11-18 18:51 | ER Document Report ---
HPI - HPI Patient complains to provider of: Sore throat Pain Level: 3 Context: Patient is a 22-year-old female 27 weeks complaining of a sore throat intermittently 5-6 weeks. Patient was seen by her PCM recently had a negative strep. Patient denies any fever. Associated Symptoms: None Exacerbated by: Denies Relieved by: Denies - ROS Systems Reviewed and Negative: Yes All other systems reviewed and negative - EENT EENT: REPORTS: Sore Throat - RESPIRATORY Respiratory: REPORTS: Trouble Breathing - REPRODUCTIVE Reproductive: DENIES: : Past Medical History - General Information source: Patient - Social History Smoking Status: Current Every Day Smoker Frequency of alcohol use: None Drug Abuse: None Lives with: Family Family History: Reviewed & Not Pertinent Patient has suicidal ideation: No Patient has homicidal ideation: No Renal/ Medical History: Denies: Hx Peritoneal Dialysis Psychiatric Medical History: Reports: Hx Attention Deficit Hyperactivity Disorder, Hx Bipolar Disorder, Hx Depression Past Surgical History: Reports: Hx Abdominal Surgery - esophagus, feeding tube, Hx Section - demise at 32wks Vertical Provider Document - CONSTITUTIONAL Agree With Documented VS: Yes Exam Limitations: No Limitations - INFECTION CONTROL TRAVEL OUTSIDE OF THE [place] IN LAST 30 DAYS: No - HEENT HEENT: Atraumatic, PERRLA, Pharyngeal Tenderness, Pharyngeal Erythema Notes: Uvula mildly edematous. No signs of peritonsillar cellulitis or abscess. Course - Re-evaluation Re-evalutation: 11/18/17 18:48 No airway compromise. Patient talking and swallowing without difficulty. Course of oral steroid prescribed. Home care, PCM follow-up and ED return precautions were discussed with the patient. Patient agreeable with plan and stable for discharge Discharge - Discharge Clinical Impression: Sore throat Condition: Stable Disposition: HOME, SELF-CARE Instructions: Sore Throat ([facility]), Steroid Medication Additional Instructions: Take oral steroids as prescribed. Lozenges salt water gargles for comfort Follow-up with your primary care for further evaluation and treatment if symptoms persist Prescriptions: Prednisone 20 mg PO BID #20 tablet Referrals: TAMIE MELTON MD [Primary Care Provider] - Follow up as needed
== END 2017-11-18 19:07 | disposition home or self-care (01) ==
LOC: ER 17:57
DX: O26.93 Pregnancy related conditions, unspecified, third trimester (principal); J02.9 Acute pharyngitis, unspecified; Z3A.32 32 weeks gestation of pregnancy
CPT/HCPCS: 99282; J7512

== ENCOUNTER 2017-11-27 17:35 | Outpatient (CLI) | payer MEDICAID ==
[2017-11-27 18:32] LABS: APPEARANCE,URINE CLOUDY; BILIRUBIN,URINE NEGATIVE (NEGATIVE); COLOR,URINE YELLOW; GLUCOSE, URINE 50 mg/dL (NEGATIVE); KETONES,URINE NEGATIVE (NEGATIVE); LEUKOCYTE ESTERASE,URINE SMALL (NEGATIVE); NITRITE,URINE NEGATIVE (NEGATIVE); PROTEIN,URINE 100 mg/dL (NEGATIVE); URINE SPECIFIC GRAVITY 1.035; UROBILINOGEN,URINE NEGATIVE mg/dL (<2.0)
[2017-11-27 18:51] LABS: URINE AMPHETAMINES SCREEN NEGATIVE; URINE BARBITURATES SCREEN NEGATIVE; URINE BENZODIAZEPINES SCREEN NEGATIVE; URINE COCAINE SCREEN NEGATIVE; URINE MARIJUANA (THC) SCREEN NEGATIVE; URINE METHADONE SCREEN NEGATIVE; URINE PHENCYCLIDINE SCREEN NEGATIVE
== END 2017-11-27 21:13 | disposition home or self-care (01) ==
LOC: LC 17:35
PROVIDERS: ATTEND Obstetrics & Gynecology
PROC: 4A1HXCZ Monitoring of Products of Conception, Cardiac Rate, External Approach (ICD-10-PCS; principal; 2017-11-27)
DX: O47.03 False labor before 37 completed weeks of gestation, third trimester (principal); Z3A.28 28 weeks gestation of pregnancy
CPT/HCPCS: 80307; 81001

== ENCOUNTER 2017-12-24 11:07 | Outpatient (CLI) | payer MEDICAID ==
--- NOTE | 2017-12-24 12:26 | Non Stress Test Report ---
Non Stress Test Datetime Report Generated by CPN: 12/24/2017 12:26 DEMOGRAPHIC EGA NST: 32.0 INDICATION Indication for Study: Ordered by Provider Indication for Study (NST) Other: lc VITAL SIGNS Temperature - NST: 98.5 RESP - NST: 5 MONITORING Monitor Explained: Monitor Explained; Test Explained; Patient Verbalized Understanding Time on Monitor: 12/24/2017 11:25 Time off Monitor: 12/24/2017 12:11 NST Duration: 46 NST INTERVENTIONS NST Interventions: PO Hydration; Reposition Patient Physician Notified NST: K Gan CNM BABY A: [id number] BABY A Movement : Present Contraction Frequency : rare FHR Baseline : 120 Accelerations : 15X15 Decelerations : None Variability : Moderate 6-25bpm NST Review: Meets Criteria for Reactive NST NST Review and Verified By : Henrique Gallardo RN NST Results: Reactive NST REPORT Report Trigger: Send Report
[2017-12-24 13:51] LABS: APPEARANCE,URINE SLIGHTLY-CLOUDY; BILIRUBIN,URINE NEGATIVE (NEGATIVE); COLOR,URINE YELLOW; GLUCOSE, URINE NEGATIVE (NEGATIVE); KETONES,URINE NEGATIVE (NEGATIVE); LEUKOCYTE ESTERASE,URINE MODERATE (NEGATIVE); NITRITE,URINE NEGATIVE (NEGATIVE); PROTEIN,URINE NEGATIVE (NEGATIVE); URINE SPECIFIC GRAVITY 1.018
[2017-12-24 14:13] LABS: URINE AMPHETAMINES SCREEN NEGATIVE; URINE BARBITURATES SCREEN NEGATIVE; URINE BENZODIAZEPINES SCREEN NEGATIVE; URINE COCAINE SCREEN NEGATIVE; URINE METHADONE SCREEN NEGATIVE; URINE PHENCYCLIDINE SCREEN NEGATIVE
[2017-12-24 14:22] LABS: URINE MARIJUANA (THC) SCREEN UNCONFIRMED POSITIVE
== END 2017-12-24 12:30 | disposition home or self-care (01) ==
LOC: LC 11:07
PROVIDERS: ATTEND Obstetrics & Gynecology
PROC: 4A1HXCZ Monitoring of Products of Conception, Cardiac Rate, External Approach (ICD-10-PCS; principal; 2017-12-24)
DX: Z34.93 Encounter for supervision of normal pregnancy, unspecified, third trimester (principal); Z3A.32 32 weeks gestation of pregnancy
CPT/HCPCS: 59025; 80307; 81001

== ENCOUNTER 2017-12-31 02:14 | Outpatient (CLI) | payer MEDICAID ==
[2017-12-31 03:18] LABS: APPEARANCE,URINE SLIGHTLY-CLOUDY; BILIRUBIN,URINE NEGATIVE (NEGATIVE); COLOR,URINE YELLOW; GLUCOSE, URINE 50 mg/dL (NEGATIVE); KETONES,URINE NEGATIVE (NEGATIVE); LEUKOCYTE ESTERASE,URINE NEGATIVE (NEGATIVE); NITRITE,URINE NEGATIVE (NEGATIVE); PROTEIN,URINE NEGATIVE (NEGATIVE); URINE SPECIFIC GRAVITY 1.025
[2017-12-31 03:26] LABS: URINE AMPHETAMINES SCREEN NEGATIVE; URINE BARBITURATES SCREEN NEGATIVE; URINE BENZODIAZEPINES SCREEN NEGATIVE; URINE COCAINE SCREEN NEGATIVE; URINE METHADONE SCREEN NEGATIVE; URINE PHENCYCLIDINE SCREEN NEGATIVE
[2017-12-31 03:29] LABS: URINE MARIJUANA (THC) SCREEN UNCONFIRMED POSITIVE
--- NOTE | 2017-12-31 04:10 | Non Stress Test Report ---
Non Stress Test Datetime Report Generated by CPN: 12/31/2017 04:09 DEMOGRAPHIC EGA NST: 33.0 INDICATION Indication for Study: Decreased Movement URINE RESULTS Urine Protein, NST: Negative Urine Ketones - NST: Negative Urine Glucose - NST: Positive Urine Blood - NST: Negative MONITORING Monitor Explained: Monitor Explained; Test Explained; Patient Verbalized Understanding Time on Monitor: 12/31/2017 02:47 Time off Monitor: 12/31/2017 03:41 NST Duration: 54 NST INTERVENTIONS NST Interventions: PO Hydration Physician Notified NST: Bob, MD BABY A: [id number] BABY A Movement : Present Contraction Frequency : 0 FHR Baseline : 130 Accelerations : 15X15 Decelerations : None Variability : Moderate 6-25bpm NST Review: Meets Criteria for Reactive NST NST Review and Verified By : Sesar Bates RN NST Results: Reactive NST REPORT Report Trigger: Send Report
== END 2017-12-31 03:52 | disposition home or self-care (01) ==
LOC: LC 02:14
PROVIDERS: ATTEND Obstetrics & Gynecology
PROC: 4A1HXCZ Monitoring of Products of Conception, Cardiac Rate, External Approach (ICD-10-PCS; principal; 2017-12-31)
DX: O36.8130 Decreased fetal movements, third trimester, not applicable or unspecified (principal); Z3A.33 33 weeks gestation of pregnancy
CPT/HCPCS: 59025; 81001; 80307; G0480 ×2; 80349

== ENCOUNTER 2018-01-08 08:42 | Inpatient (IN) | payer MEDICAID ==
[2018-01-08 09:47] LABS: APPEARANCE,URINE SLIGHTLY-CLOUDY; BILIRUBIN,URINE NEGATIVE (NEGATIVE); COLOR,URINE YELLOW; GLUCOSE, URINE NEGATIVE (NEGATIVE); KETONES,URINE NEGATIVE (NEGATIVE); LEUKOCYTE ESTERASE,URINE NEGATIVE (NEGATIVE); NITRITE,URINE NEGATIVE (NEGATIVE); PROTEIN,URINE 30 mg/dL (NEGATIVE); URINE SPECIFIC GRAVITY 1.018
[2018-01-08] MEDS ORDERED: NORMAL SALINE 250 ML IV PRN (09:56)
[2018-01-08 10:00] LABS: URINE AMPHETAMINES SCREEN NEGATIVE; URINE BARBITURATES SCREEN NEGATIVE; URINE BENZODIAZEPINES SCREEN NEGATIVE; URINE COCAINE SCREEN NEGATIVE; URINE MARIJUANA (THC) SCREEN NEGATIVE; URINE METHADONE SCREEN NEGATIVE; URINE PHENCYCLIDINE SCREEN NEGATIVE
[2018-01-08] MEDS ORDERED: CEFAZOLIN SODIUM 1 GM in DEXTROSE 5%-WATER 50 ML IV PRN (10:00)
[2018-01-08] MEDS ORDERED: CEFAZOLIN 1 GM/D5W RTU 1 GM/50 ML RTUPB IV ONE (11:08)
[2018-01-08] MEDS ORDERED: CITRIC ACID/SODIUM CITRATE ORAL SOLN 15 ML UDCUP ONE (11:08)
[2018-01-08 11:25] LABS: ABSOLUTE EOSINOPHILS # (AUTO) 0.1 10^3/uL (0.0-0.6); ABSOLUTE LYMPHOCYTES (AUTO) 2.8 10^3/uL (0.5-4.7); ABSOLUTE MONOCYTES (AUTO) 0.7 10^3/uL (0.1-1.4); ABSOLUTE NEUT (AUTO) 9.4 10^3/uL (1.7-8.2); BASOPHILS % (AUTO) 0.4 % (0-2); EOSINOPHILS % (AUTO) 0.8 % (0-6); HEMATOCRIT 28.8 % (36.0-47.0); HEMOGLOBIN 9.5 g/dL (12.0-15.5); LYMPHOCYTES % (AUTO) 21.5 % (13-45); MEAN CORPUSCULAR HEMOGLOBIN 25.5 pg (27.0-33.4); MEAN CORPUSCULAR HGB CONC 32.9 g/dL (32.0-36.0); MEAN CORPUSCULAR VOLUME 78 fl (80-97); MONOCYTES % (AUTO) 5.6 % (3-13); PLATELET COUNT 322 10^3/uL (150-450); RED BLOOD COUNT 3.71 10^6/uL (3.72-5.28); RED CELL DISTRIBUTION WIDTH 13.6 % (11.5-14.0); SEGMENTED NEUTROPHILS % (AUTO) 71.7 % (42-78); TOTAL CELLS COUNTED % (AUTO) 100 %; WHITE BLOOD COUNT 13.2 10^3/uL (4.0-10.5)
[2018-01-08] MEDS ORDERED: RINGERS SOLUTION,LACTATED 1,000 ML IV PRN ×2 (11:27→12:59)
--- NOTE | 2018-01-08 11:43 | Admission Physical ---
Datetime Report Generated by CPN: 01/08/2018 11:42 CURRENT ADMISSION Chief Complaint: Suspected Ruptured Membranes Indication for Induction: Not Applicable Admit Impression : , Intrauterine ; Repeat Section Admit Impression- Other: previous c/section with demise delivered Admit Plan: Admit to Unit; Initiate Section Protocol ALLERGIES Medication Allergies: No Medication Allergies: nickel (11/27/2017) Latex: No Latex Allergies Food Allergies: no Environmental Allergies: no OBSTETRICAL HISTORY EDC: 02/18/2018 00:00 : 2 Para: 1 Term: 0 : 0 SAB: 0 IAB: 0 Ectopic: 0 Livin Cesareans: 0 VBACs: 0 Multiple Births: 0 Gestational Diabetes: No Rh Sensitization: No Incompetent Cervix: No NARINDER: No Infertility: No ART Treatment: No Uterine Anomaly: No IUGR: Yes Hx Previous C/S: Yes Macrosomia: No Hx Loss/Stillborn: Yes PIH: No Hx : No Placenta Previa/Abruption: No Depression/PP Depression: Yes PTL/PROM: No Post Hemorrhage: No Current Procedures: Ultrasound; NST; BPP Obstetrical History Comments: mood swing issues ,anger , depression and anxiety-meds Zoloft,triliptol /stillborn by c/s /gabapentan /steroid shots for right arm after delivery G1- stillborn 32wks G2- current SEE RECORDS Alcohol: No Marijuana : No Cocaine: No Other Illicit Drugs: No Cigarettes: Smoker, Current Status Unknown. [id number] Cigarette Frequency: > 10 per day Advised to Stop: Yes Cigarette Comments: has cut down MEDICAL HISTORY Diabetes: No Diabetes Type: Gestational Diabetes Blood Transfusion: No Pulmonary Disease (Asthma, TB): No Breast Disease: No Hypertension: No Body Sander Surgery: No Heart Disease: No Hosp/Surgery: Yes Autoimmune Disorder: No Anesthetic Complications: No Kidney Disease: Yes Abnormal Pap Smear: No Neuro/Epilepsy: Yes Psychiatric Disorders: Yes Other Medical Diseases: Yes Hepatitis/Liver Disease: No Significant Family History: No Varicosities/Phlebitis: No Trauma/Violence : No Thyroid Dysfunction: No Medical History Comments: kidney infections frequently/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/anxiety/depression/anger management/mood swings/baby after the pt was born she had stomach and feeding tubes for 2 years/stomach surgery as INFECTIOUS HISTORY Gonorrhea: No Genital Herpes: No Chlamydia: No Tuberculosis: No Syphilis: No Hepatitis: No HIV/AIDS Exposure: No Rash or Viral Illness: No HPV: No PHYSICAL EXAM General: Normal HEENT: Normal Neurologic: Abnormal Thyroid: Normal Heart: Normal Lungs: Normal Breast: Normal Back: Normal Abdomen: Normal Genitourinary Exam: Normal Extremities: Normal DTRs: Normal Pelvic Type: Adequate Physical Exam Comments: right brachial weakness from injury Vital Signs: Reviewed; Within Normal Limits VAGINAL EXAM Dilatation: 0 Effacement: 0 Station: 0 FETUS A EGA: 34.1 Monitoring: External US FHR- Baseline: 150 Variability: Moderate 6-25bpm Accelerations: 15X15 Decelerations: None FHR Category: Category I FHR Comments: ActiProm positive Estimated Weight (gm): 2200 Presentation: Vertex PLANS FOR LABOR AND DELIVERY Labor and Delivery: None Pain Management: Spinal Other Pain Management Plans: has bad anxiety issues Feeding Preference: Both Benefit of Breast Feed Discussed: Yes Circumcision: No INFORMED CONSENT Signature: with User ID: Pedro
[2018-01-08] MEDS ORDERED: EPHEDRINE SULFATE INJ 50 MG/1 ML AMPULE ONE (11:48)
[2018-01-08] MEDS ORDERED: FENTANYL CITRATE INJ/PF 100 MCG/2 ML AMPUL ONE ×2 (11:48→12:57)
[2018-01-08] MEDS ORDERED: OXYTOCIN 10 UNIT/ML VIAL ONE (11:48)
[2018-01-08] MEDS ORDERED: KETOROLAC TROMETHAMINE INJ/PF 30 MG/1 ML SDV ONE (11:48)
[2018-01-08] MEDS ORDERED: ACETAMINOPHEN 1,000 MG/100 ML RTUPB IV ONE (11:49)
[2018-01-08] MEDS ORDERED: ONDANSETRON HCL INJ/PF 4 MG/2 ML SDV ONE (11:49)
[2018-01-08] MEDS ORDERED: OXYTOCIN/NORMAL SALINE 20 UNIT/1,000 ML RTUINJ ONE (11:49)
[2018-01-08] MEDS ORDERED: MIDAZOLAM 2 MG/2 ML INJ ONE (11:49)
[2018-01-08] MEDS ORDERED: BUPIVACAINE HCL/DEX-WATER/PF 15 MG/2 ML AMPULE ONE (11:53)
[2018-01-08] MEDS ORDERED: DIPHENHYDRAMINE HCL 50 MG/ML VIAL ONE (12:14)
[2018-01-08] MEDS ORDERED: MEASLES,MUMPS&RUBELLA VACC/PF 0.5 ML VIAL SUBCUT PRN (12:59)
[2018-01-08] MEDS ORDERED: DIPH/PERTUSS(ACELL)/TETANUS VAC/PF 0.5 ML SYR (>=10YO) IM PRN (12:59)
[2018-01-08] MEDS ORDERED: OXYCODONE-ACETAMINOPHEN 5-325 MG TABLET PO PRN (12:59)
[2018-01-08] MEDS ORDERED: SIMETHICONE 80 MG TAB.CHEW PO PRN (12:59)
[2018-01-08] MEDS ORDERED: PROMETHAZINE HCL INJ 25 MG/1 ML VIAL IV PRN (12:59)
[2018-01-08] MEDS ORDERED: OXYTOCIN/NORMAL SALINE 20 UNIT/1,000 ML RTUINJ IV PRN (12:59)
[2018-01-08] MEDS ORDERED: ACETAMINOPHEN 325 MG TABLET PO PRN (12:59)
[2018-01-08] MEDS ORDERED: ACETAMINOPHEN 1,000 MG/100 ML RTUPB IV PRN (12:59)
[2018-01-08] MEDS ORDERED: MORPHINE SULFATE 10 MG/ML INJ ONE (13:24)
[2018-01-08] MEDS: MORPHINE SULFATE 10 MG/ML INJ IV PRN ×2 (13:28→20:36)
[2018-01-08] MEDS ORDERED: HYDROMORPHONE HCL INJ/PF 2 MG/ML AMPULE IV ONE (14:00)
[2018-01-08] MEDS ORDERED: HYDROMORPHONE HCL INJ/PF 2 MG/ML AMPULE ONE (14:04)
[2018-01-08 14:31] LABS: CHLAM PCR NOT DETECTED (NOT DETECT); GON PCR NOT DETECTED (NOT DETECT)
[2018-01-08] MEDS ORDERED: PHENYLEPHRINE HCL INJ/PF 10 MG/1 ML SDV ONE (14:55)
--- NOTE | 2018-01-08 15:02 | Delivery Summary ---
Del Sum A-C Datetime Report Generated by CPN: 01/08/2018 15:02 DELIVERY PERSONNEL DELIVERY PERSONNEL: [id number] Delivery Doctor:: Evita Rojas MD Anesthesiologist:: Lindy Lopez MD FURNITURE AND BEDDING INSPECTOR:: Steve Bailey CRNA Labor and Delivery Nurse:: Nori Carrillo RN Mail Technician:: Nori Carrillo RN Neonatal Nurse Practitioner:: DARWIN [place] Nursery Nurse:: Roseanna Delgado RN Student Observers:: Alena Chopra SN Vamp Presser/HEAT TREATING BLUER: Inga Thao, ST Vamp Presser/HEAT TREATING BLUER: Paulina Costello, ST MATERNAL INFORMATION Delivery Anesthesia: Spinal Medications After Delivery: Pitocin Drip 20 Units/1000ml NSS Maternal Complications: Premature Rupture of Membranes LABOR SUMMARY EDC: 02/18/2018 00:00 No. Babies in Womb: 1 Attempted: No Labor Anesthesia: None LABOR INFORMATION Reason for Induction: Not Applicable Oxytocin: N/A Group B Beta Strep: unknown Steroids Given: None Reason Steroids Not Administered: Not Applicable MEMBRANES Membranes Rupture Method: Spontaneous Rupture of Membranes: 01/08/2018 06:30 Length of Rupture (hr): 5.95 Amniotic Fluid Color: Clear Amniotic Fluid Amount: Moderate Amniotic Fluid Odor: Normal STAGES OF LABOR Stage 3 hr: 0 Stage 3 min: 1 VAGINAL DELIVERY Episiotomy: None Laceration #1: None Laceration Extension #1: N/A Laceration Repair: Not Applicable Sponge Count Correct: N/A Sharps Count Correct: N/A CSECTION DELIVERY Primary Indication: Repeat Elective Other Primary Indication: Premature Rupture of Membranes Secondary Indication: N/A CSection Urgency: Non-Scheduled CSection Incidence: Repeat Labor: N/A Elective: N/A CSection Incision: Lower Uterine Transverse BABY A INFORMATION Infant Delivery Date/Time: 01/08/2018 12:27 Method of Delivery: Born in Route : No : N/A Forceps: N/A Vacuum Extraction: N/A Shoulder Dystocia : No PRESENTATION/POSITION BABY A Presentation: Cephalic Cephalic Presentation: Vertex Vertex Position: Left Occipital Anterior Breech Presentation: N/A PLACENTA INFORMATION BABY A Placenta Delivery Time : 01/08/2018 12:28 Placenta Method of Delivery: Manual Removal Placenta Status: Delivered SCORES BABY A Heart Rate 1 min: >100 bpm Resp Effort 1 min: Good Cry Reflex Irritability 1 min: Cough or Sneeze or Pulls Away Muscle Tone 1 min: Active Motion Color 1 min: Blue/Pale Resuscitation Effort 1 min: Tactile Stimulation SCORE 1 MIN: 8 Heart Rate 5 min: >100 bpm Resp Effort 5 min: Good Cry Reflex Irritability 5 min: Cough or Sneeze or Pulls Away Muscle Tone 5 min: Active Motion Color 5 min: Body Simla, Extremities Blue Resuscitation Effort 5 min: N/A; Tactile Stimulation SCORE 5 MIN: 9 INFORMATION BABY A Gestational Age at Delivery: 34.1 Gestational Status: Late - 34- 36.6 Weeks Outcome : Liveborn Infant Condition : Stable Infant Sex: Male IDENTIFICATION BABY A Verification Date/Time: 01/08/2018 12:28 ID Band Number: [id number] Mother's Name Verified: Yes Infant RN Verifying Infant: Clint Roberts RN Additional Verifying Personnel: Emily Carrillo RN WEIGHT/LENGTH BABY A Birthweight (gm): 2249 Infant Weight (lb): 4 Infant Weight (oz): 15 Infant Length (in): 18.75 Infant Length (cm): 47.63 CORD INFORMATION BABY A No. Cord Vessels: 3 Nuchal Cord : N/A Cord Blood Taken: Yes-For Eval (Mom's Blood Type - or O+) Infant Suction: Mouth; Nose ASSESSMENT BABY A Complications: None Physical Findings at Delivery: Within Normal Limits Infant Respirations: Appears Normal Skin to Skin: No Airbrush Artist Photography/ALS Called : Yes Care By: Jase Delgado RN Transferred To: [facility] BABY B INFORMATION : N/A
[2018-01-08] MEDS: OXYCODONE-ACETAMINOPHEN 5-325 MG TABLET PO PRN (17:04)
[2018-01-08] MEDS: DOCUSATE SODIUM 100 MG CAPSULE PO SCH (17:52)
[2018-01-08] MEDS: KETOROLAC TROMETHAMINE INJ/PF 30 MG/1 ML SDV IV SCH (21:49)
[2018-01-09] MEDS: KETOROLAC TROMETHAMINE INJ/PF 30 MG/1 ML SDV IV SCH ×2 (06:22→10:24)
[2018-01-09 07:11] LABS: HEMATOCRIT 24.7 % (36.0-47.0); HEMOGLOBIN 8.2 g/dL (12.0-15.5); MEAN CORPUSCULAR HEMOGLOBIN 25.7 pg (27.0-33.4); MEAN CORPUSCULAR VOLUME 78 fl (80-97); PLATELET COUNT 271 10^3/uL (150-450); RED BLOOD COUNT 3.18 10^6/uL (3.72-5.28); RED CELL DISTRIBUTION WIDTH 13.5 % (11.5-14.0); WHITE BLOOD COUNT 14.1 10^3/uL (4.0-10.5)
[2018-01-09] MEDS: DOCUSATE SODIUM 100 MG CAPSULE PO SCH ×2 (09:29→18:34)
[2018-01-09] MEDS: OXYCODONE-ACETAMINOPHEN 5-325 MG TABLET PO PRN ×2 (09:41→14:38)
[2018-01-09] MEDS ORDERED: PRENATAL VITAMIN W DHA CAPSULE PO SCH (10:00)
--- NOTE | 2018-01-09 11:28 | PDOC PROGRESS REPORT ---
Subjective-OB Progress Note for:: 01/09/18 Subjective: Pt doing well, no concerns. She reports light bleeding, reg diet + flatus and voiding without difficulty. Physical Exam (OB) Vital Signs: Temp Pulse Resp BP Pulse Ox 98.2 F 78 16 104/47 L 98 01/09/18 04:12 01/09/18 04:12 01/09/18 04:12 01/09/18 04:12 01/09/18 04:12 Intake & Output 01/08/18 01/09/18 01/10/18 06:59 06:59 06:59 Intake Total 300 Output Total 1920 Balance -1620 Weight 70.7 kg - PIH/Pre-Eclampsia DTR's: 2 + Clonus: Negative Headache: Absent Epigastric Pain: No Visual Changes: No - Dressing Removed: No Incision: Dressing, Well Approximated Closure Type: Surgical Glue - Lochia Lochia Amount: Small 10-25 ml Lochia Color: Rubra/Red - Abdomen Description: Tender, Soft Hernia Present: No Fundal Description: Firm, Midline Fundal Height: u/u - u/2 Objective-Diagnostic Laboratory: 01/09/18 05:46 01/08/18 01/08/18 01/09/18 10:46 10:46 05:46 WBC 13.2 H 14.1 H RBC 3.71 L 3.18 L Hgb 9.5 L 8.2 L Hct 28.8 L 24.7 L MCV 78 L 78 L MCH 25.5 L 25.7 L MCHC 32.9 33.0 RDW 13.6 13.5 Plt Count 322 271 Seg Neutrophils % 71.7 Lymphocytes % 21.5 Monocytes % 5.6 Eosinophils % 0.8 Basophils % 0.4 Absolute Neutrophils 9.4 H Absolute Lymphocytes 2.8 Absolute Monocytes 0.7 Absolute Eosinophils 0.1 Absolute Basophils 0.0 Blood Type B POSITIVE Antibody Screen NEGATIVE Assessment and Plan(PN) - Assessment and Plan (1) premature rupture of membranes Qualifiers: PROM onset of labor timing: unspecified duration between rupture of membranes and onset of labor Qualified Code(s): O42.919 - premature rupture of membranes, unspecified as to length of time between rupture and onset of labor, unspecified trimester Is this a current diagnosis for this admission?: Yes (2) S/P repeat low transverse Is this a current diagnosis for this admission?: Yes - Time Spent with Patient Time with patient: Less than 15 minutes Medications reviewed and adjusted accordingly: Yes - Disposition Anticipated Discharge: Home Within: within 24 hours
[2018-01-09] MEDS: IBUPROFEN 800 MG TABLET PO SCH ×2 (12:52→18:34)
[2018-01-09 16:27] VITALS: BP 124/66
== END 2018-01-09 21:53 | disposition home or self-care (01) | DRG 766 ==
LOC: LC 08:42 → LR 09:55 → 2S 15:12
PROVIDERS: ADMIT Obstetrics & Gynecology; ATTEND Obstetrics & Gynecology
PROC: 10D00Z1 Extraction of Products of Conception, Low, Open Approach (ICD-10-PCS; principal; 2018-01-08)
DX: O34.211 Maternal care for low transverse scar from previous cesarean delivery (principal); Z37.0 Single live birth; Z3A.34 34 weeks gestation of pregnancy; O99.334 Smoking (tobacco) complicating childbirth; F17.210 Nicotine dependence, cigarettes, uncomplicated
CPT/HCPCS: 36415; 80307; 81001; 84112; 85025; 85027; 86592; 86850; 86900; 86901; 86920; 87081; 87491; 87591; 88307; 94799; J0131; J0690; J1170; J1200; J1885; J2250; J2270; J2370; J2405; J2590; J3010; J3490

== ENCOUNTER 2018-11-01 16:13 | Emergency (ER) | payer MEDICAID ==
[2018-11-01 16:25] VITALS: BP 128/66
[2018-11-01] MEDS ORDERED: IBUPROFEN 800 MG TABLET PO ONE (17:20)
[2018-11-01] MEDS ORDERED: CYCLOBENZAPRINE HCL 10 MG TABLET PO ONE (17:20)
--- NOTE | 2018-11-01 17:22 | ER Document Report ---
HPI - HPI Patient complains to provider of: right arm pain Time Seen by Provider: 11/01/18 17:04 Onset: Other - chronic Pain Level: 5 Context: Patient presents to the emergency department with complaints of right arm pain. Reports she was just sitting there and her right arm started tightening up. Patient does have a history of brachial plexus injury from . Reports she has been treated with Botox migraine injections muscle relaxer as nothing seems to work and it seems to getting worse. She reports she just finished her muscle relaxers 1 month ago. She is under the care of a neurologist and LIANA . She denies trauma. Denies fever vomiting diarrhea. Reports she took Tylenol for the pain but it did not help. Associated Symptoms: None Exacerbated by: Movement Relieved by: Denies Similar symptoms previously: Yes Recently seen / treated by doctor: Yes - REPRODUCTIVE Reproductive: DENIES: : - MUSCULOSKELETAL Musculoskeletal: REPORTS: Extremity pain - right arm Past Medical History - General Information source: Patient Last Menstrual Period: justt finished - Social History Smoking Status: Current Every Day Smoker Cigarette use (# per day): Yes Frequency of alcohol use: None Drug Abuse: None Lives with: Family Family History: Reviewed & Not Pertinent Patient has suicidal ideation: No Patient has homicidal ideation: No Renal/ Medical History: Denies: Hx Peritoneal Dialysis Psychiatric Medical History: Reports: Hx Attention Deficit Hyperactivity Disorder, Hx Bipolar Disorder, Hx Depression Traumatic Medical History: Reports: Other - brachial plexus Past Surgical History: Reports: Hx Abdominal Surgery - esophagus, feeding tube, Hx Section - demise at 32wks Vertical Provider Document - CONSTITUTIONAL Agree With Documented VS: Yes General Appearance: WD/WN, No Apparent Distress - INFECTION CONTROL TRAVEL OUTSIDE OF THE [place] IN LAST 30 DAYS: No - HEENT HEENT: Atraumatic, Normocephalic - NECK Neck: Normal Inspection, Supple - RESPIRATORY Respiratory: No Respiratory Distress - MUSCULOSKELETAL/EXTREMETIES Musculoskeletal/Extremeties: FROM, Tender - Right arm tender to palpation when she lifts arm. No erythema no swelling no warmth no obvious trauma. Good radial pulse good cap refill. - NEURO Level of Consciousness: Awake, Alert, Appropriate Motor/Sensory: No Motor Deficit - DERM Integumentary: Warm, Dry Adult Front & Back Diagram: 1 - Entire right arm tender. No signs of infection. Patient reports this is a chronic issue. Course - Re-evaluation Re-evalutation: 11/01/18 17:27 She will be treated with muscle relaxers Motrin here. She was instructed to follow-up with her primary care provider for further medication. She verbalized understanding to all instructions. Dictation of this chart was performed using voice recognition software; therefore, there may be some unintended grammatical errors. - Vital Signs Vital signs: Temp Pulse Resp BP Pulse Ox 98.8 F 104 H 16 128/66 H 99 11/01/18 16:24 11/01/18 16:24 11/01/18 16:24 11/01/18 16:24 11/01/18 16:24 Discharge - Discharge Clinical Impression: Right arm pain, History of brachial plexus Condition: Stable Disposition: HOME, SELF-CARE Instructions: Use of Ojxe-Qdc-Ijddacn Ibuprofen ([facility]) Additional Instructions: *You have been evaluated for right arm pain, history of brachial plexus *Follow up with your primary care provider within 1 week *Take motrin as indicated for pain *Return to ED for worsening condition, changes, needs Referrals: ZHANNA YOUNGBLOOD FNP-C [Primary Care Provider] - Follow up in 1 week
== END 2018-11-01 17:30 | disposition home or self-care (01) ==
LOC: ER 16:13
DX: M79.601 Pain in right arm (principal); F17.210 Nicotine dependence, cigarettes, uncomplicated
CPT/HCPCS: 99283; J3490 ×2

== ENCOUNTER 2018-12-04 01:29 | Emergency (ER) | payer MEDICAID ==
[2018-12-04 02:04] VITALS: BP 125/70
[2018-12-04 05:47] LABS: AMORPHOUS SEDIMENT,URINE TRACE /HPF; APPEARANCE,URINE TURBID; BILIRUBIN,URINE NEGATIVE (NEGATIVE); GLUCOSE, URINE 150 mg/dL (NEGATIVE); KETONES,URINE TRACE mg/dL (NEGATIVE); LEUKOCYTE ESTERASE,URINE MODERATE (NEGATIVE); NITRITE,URINE NEGATIVE (NEGATIVE); PROTEIN,URINE 100 mg/dL (NEGATIVE); URINE SPECIFIC GRAVITY 1.038; UROBILINOGEN,URINE NEGATIVE mg/dL (<2.0)
[2018-12-04 05:48] LABS: COLOR,URINE DARK YELLOW
== END 2018-12-04 05:05 | disposition left against medical advice (07) ==
LOC: ER 01:29
DX: Z53.21 Procedure and treatment not carried out due to patient leaving prior to being seen by health care provider (principal); R10.9 Unspecified abdominal pain
CPT/HCPCS: 81001

== ENCOUNTER 2019-05-14 04:53 | Emergency (ER) | payer SELFPAY ==
[2019-05-14] MEDS ORDERED: DEXAMETHASONE SOD PHOS INJ 10 MG/1 ML VIAL IV ONE (08:02)
--- NOTE | 2019-05-14 08:05 | ER Document Report ---
ED General - General Chief Complaint: Sore Throat Stated Complaint: SORE THROAT Time Seen by Provider: 05/14/19 07:02 Primary Care Provider: NERISSA HILTON MD [Primary Care Provider] - Follow up as needed TRAVEL OUTSIDE OF THE [place] IN LAST 30 DAYS: No - HPI Notes: Patient is a 23-year-old female who presents to the emergency department for evaluation of a sore throat. She states overall that the pain is been present for about 2 weeks this time, but she states that recurrent tonsillitis multiple times in the last 6 months. She states her pain did become unmanageable over the last 3 days. She denies any fevers or chills. She states she has pain with swallowing, but is able to do so. No nausea or vomiting at this time, but she states she did have one episode of emesis about 2 weeks ago when this started. She currently puts her pain at a 9 out of 10. - Related Data Allergies/Adverse Reactions: nickel Adverse Reaction (Verified 11/01/18 16:17) Home Medications: Muscle relaxer, Neurontin Past Medical History - General Information source: Patient - Social History Smoking Status: Current Every Day Smoker Family History: Reviewed & Not Pertinent Patient has suicidal ideation: No Patient has homicidal ideation: No Renal/ Medical History: Denies: Hx Peritoneal Dialysis Musculoskeletal Medical History: Reports Hx Musculoskeletal Deformity - Chronic back pain Psychiatric Medical History: Reports: Hx Attention Deficit Hyperactivity Di sorder, Hx Bipolar Disorder, Hx Depression Past Surgical History: Reports: Hx Abdominal Surgery - esophagus, feeding tube, Hx Section - demise at 32wks Review of Systems - Review of Systems Constitutional: No symptoms reported EENT: See HPI Cardiovascular: No symptoms reported Respiratory: No symptoms reported Gastrointestinal: See HPI Genitourinary: No symptoms reported Musculoskeletal: No symptoms reported Skin: No symptoms reported Neurological/Psychological: No symptoms reported Physical Exam - Vital signs Vitals: Temp Pulse Resp BP Pulse Ox 98.8 F 100 18 148/97 H 96 05/14/19 05:17 05/14/19 05:17 05/14/19 05:17 05/14/19 05:17 05/14/19 05:17 - Notes Notes: Vital signs reviewed, please refer to chart. Head is normocephalic, atraumatic. Pupils equal round, reactive to light. Oral mucosa is moist. Pharynx is mildly erythematous. She does have asymmetry with enlargement of the right tonsillar pillar. No selwyn exudate or petechiae noted. She does have some tender anterior cervical adenopathy noted, right greater than left. Neck is supple w ithout meningismus. Heart is regular rate and rhythm. Lungs are clear to auscultation bilaterally. Abdomen is soft, nontender, normoactive bowel sounds throughout. Extremities without cyanosis, clubbing. Posterior calves are nontender. Peripheral pulses are equal. Skin is warm and dry. Patient is awake, alert, neurological exam is nonfocal. Course - Re-evaluation Re-evalutation: 05/14/19 08:01 Patient presents emergency department for evaluation. She had initial strep screen which was found to be negative, this was sent for culture. I am concerned about the possibility of an abscess at this time. Blood work, line, CT ordered. We will continue to monitor. 05/14/19 09:[address] No abscess identified on CT. Her blood work is unremarkable. I will get and treat her empirically with amoxicillin as I do have a suspicion for bacterial infection, given her clinically visible asymmetry. She is to follow-up with primary care, return to the ED with worsening. - Vital Signs Vital signs: Temp Pulse Resp BP Pulse Ox 98.8 F 100 18 148/97 H 96 05/14/19 05:17 05/14/19 05:17 05/14/19 05:17 05/14/19 05:17 05/14/19 05:17 - Laboratory Result Diagrams: 05/14/19 08:12 05/14/19 08:12 Laboratory results interpreted by me: 05/14/19 05/14/19 08:12 08:12 MCV 74 L MCH 24.1 L RDW 17.9 H Potassium 3.4 L BUN 6 L Calcium 10.4 H Total Protein 8.8 H Albumin 5.5 H - Diagnostic Test Radiology reviewed: Reports reviewed Radiology results interpreted by me: 05/14/19 09:[address] 05/14/19 07:58 IMPRESSION: Tonsillar hypertrophy generally. Associated mild oropharyngeal airway narrowing. No evidence of peritonsillar abscess, however. Discharge - Discharge Clinical Impression: Tonsillitis Condition: Stable Disposition: HOME, SELF-CARE Instructions: Amoxicillin ([facility]), Tonsillitis ([facility]) Additional Instructions: Take antibiotic as prescribed. [id number] ibuprofen or Tylenol as needed for pain. Follow-up with primary care next week. Return to the emergency depar tment worsening or new concerning symptoms of any sort. Referrals: NERISSA HILTON MD [Primary Care Provider] - Follow up as needed
[2019-05-14 08:39] LABS: ABSOLUTE EOSINOPHILS # (AUTO) 0.1 10^3/uL (0.0-0.6); ABSOLUTE LYMPHOCYTES (AUTO) 3.1 10^3/uL (0.5-4.7); ABSOLUTE MONOCYTES (AUTO) 0.6 10^3/uL (0.1-1.4); ABSOLUTE NEUT (AUTO) 4.2 10^3/uL (1.7-8.2); BASOPHILS % (AUTO) 0.6 % (0-2); EOSINOPHILS % (AUTO) 1.2 % (0-6); HEMATOCRIT 36.6 % (36.0-47.0); LYMPHOCYTES % (AUTO) 38.4 % (13-45); MEAN CORPUSCULAR HEMOGLOBIN 24.1 pg (27.0-33.4); MEAN CORPUSCULAR HGB CONC 32.7 g/dL (32.0-36.0); MEAN CORPUSCULAR VOLUME 74 fl (80-97); PLATELET COUNT 326 10^3/uL (150-450); RED BLOOD COUNT 4.96 10^6/uL (3.72-5.28); RED CELL DISTRIBUTION WIDTH 17.9 % (11.5-14.0); SEGMENTED NEUTROPHILS % (AUTO) 52.8 % (42-78); TOTAL CELLS COUNTED % (AUTO) 100 %
[2019-05-14 08:51] LABS: ALBUMIN 5.5 g/dL (3.5-5.0); ALKALINE PHOSPHATASE 67 U/L (38-126); ANION GAP 13 (5-19); ASPARTATE AMINO TRANSFERASE 28 U/L (14-36); BILIRUBIN,DIRECT 0.1 mg/dL (0.0-0.4); BILIRUBIN,TOTAL 0.7 mg/dL (0.2-1.3); BLOOD UREA NITROGEN 6 mg/dL (7-20); CALCIUM 10.4 mg/dL (8.4-10.2); CARBON DIOXIDE 25 mmol/L (22-30); CHLORIDE 105 mmol/L (98-107); GLUCOSE 89 mg/dL (75-110); POTASSIUM 3.4 mmol/L (3.6-5.0); TOTAL PROTEIN 8.8 g/dL (6.3-8.2)
--- NOTE | 2019-05-14 08:59 | RADIOLOGY REPORT (SQ) ---
EXAM DESCRIPTION: CT SOFT TISSUE NECK WITH COMPLETED DATE/TIME: 05/14/2019 8:39 am REASON FOR STUDY: ST, enlarged R tonsillar pillar COMPARISON: None. TECHNIQUE: Post IV contrasted scanning from skull base through lung apices with review of bone, soft tissue and lung windows. Reconstructed coronal and sagittal MPR images reviewed. All images stored on PACS. All CT scanners at this facility use dose modulation, iterative reconstruction, and/or weight based d osing when appropriate to reduce radiation dose to as low as reasonably achievable (ALARA). [facility]: Dose Right [facility]: CareDose [facility]: Dose Right [facility]: Teradose 4D [facility]: Asterisk CONTRAST TYPE AND DOSE: contrast/concentration: Isovue 350.00 mg/ml; Total Contrast Delivered: 75.0 ml; Total Saline Delivered: 55.0 ml RENAL FUNCTION: None required. The patient is less than 50 years old. RADIATION DOSE: CT Rad equipment meets quality standard of care and radiation dose reduction techniq ues were employed. CTDIvol: 6.0 mGy. DLP: 164 mGy-cm. . LIMITATIONS: None. FINDINGS: SKULL BASE: Intact. MAJOR SALIVARY GLANDS: No solid or cystic masses. No inflammatory changes. LYMPHADENOPATHY: No adenopathy. MUCOSAL MASSES OR ASYMMETRY: Lingual tonsil enlargement scratch at generalized tonsillar enlargement with mild narrowing of the oropharynx. No abscess suggested. No epiglottic thickening. LARYNX/CORDS: No abnormal findings. VASCULAR STRUCTURES: The major vessels are patent. LUNG APICES: Clear. BONES: Intact. THYROID: Normal size. No masses. PARANASAL SINUSES: Clear. OTHER: No other significant finding. IMPRESSION: Tonsillar hypertrophy generally. Associated mild oropharyngeal airway narrowing. No ev idence of peritonsillar abscess, however. TECHNICAL DOCUMENTATION: JOB ID: [id number] Quality ID # [id number]: Final reports with documentation of one or more dose reduction techniques (e.g., Au tomated exposure control, adjustment of the mA and/or kV according to patient size, use of iterative reconstruction technique) 2010 [employer]- All Rights Reserved Reading location - IP/workstation name: [email or web address]
[2019-05-14 10:48] VITALS: BP 134/72
== END 2019-05-14 10:30 | disposition home or self-care (01) ==
LOC: ER 04:53
DX: J03.90 Acute tonsillitis, unspecified (principal); R13.10 Dysphagia, unspecified; F17.200 Nicotine dependence, unspecified, uncomplicated
CPT/HCPCS: 99284; 96374; 36415; 87070; 87880; 84703; 85025; 80053; 70491; J1100

== ENCOUNTER 2019-05-22 18:05 | Emergency (ER) | payer SELFPAY ==
[2019-05-22] MEDS ORDERED: LIDOCAINE 5% (700 MG) TRANSDERMAL ADH..PATCH TP ONE (18:33)
[2019-05-22] MEDS ORDERED: CYCLOBENZAPRINE HCL 10 MG TABLET PO ONE (18:33)
[2019-05-22] MEDS ORDERED: NORMAL SALINE 1000 ML 1,000 ML IV ONE (18:33)
--- NOTE | 2019-05-22 18:35 | ER Document Report ---
ED Medical Screen (RME) - General Chief Complaint: Neck and Upper Back Pain Stated Complaint: SORE THROAT,SWELLING,NECK PAIN Time Seen by Provider: 05/22/19 18:19 Primary Care Provider: NERISSA HILTON MD [Primary Care Provider] - Follow up as needed Mode of Arrival: Ambulatory Notes: Patient presents with a 2-day history of right-sided neck discomfort. Patient states that she turned her head and felt a sudden sharp pain and developed bruising and swelling to the right side of her neck. Patient states that she is having numbness to the shoulders and hands. Patient also complains of muscle spasms to her back. Patient also states she was recently treated for strep and does not feel like she is improving. Patient states she has a history of scoliosis as well as a brachial plexus injury diagnosed at . Patient without any objective bruising or swelling noted to the right side of her neck. I have greeted and performed a rapid initial assessment of this patient. A comprehensive ED assessment and evaluation of the patient, analysis of test results and completion of the medical decision making process will be conducted by additional ED providers. TRAVEL OUTSIDE OF THE [place] IN LAST 30 DAYS: No - Related Data Allergies/Adverse Reactions: nickel Adverse Reaction (Verified 05/22/19 18:19) Past Medical History Renal/ Medical History: Denies: Hx Peritoneal Dialysis Musculoskeltal Medical History: Reports Hx Musculoskeletal Deformity - Chronic back pain Psychiatric Medical History: Reports: Hx Attention Deficit Hyperactivity Disorder, Hx Bipolar Disorder, Hx Depression Past Surgical History: Reports: Hx Abdominal Surgery - esophagus, feeding tube, Hx Section - demise at 32wks Physical Exam - Vital signs Vitals: Temp Pulse Resp BP Pulse Ox 97.9 F 116 H 18 110/62 100 05/22/19 18:10 05/22/19 18:10 05/22/19 18:10 05/22/19 18:10 05/22/19 18:10 - General General appearance: Alert Notes: Patient with right sternocleidal mastoid muscle tenderness with palpation, right trapezius muscle tenderness with spasm Course - Vital Signs Vital signs: Temp Pulse Resp BP Pulse Ox 97.9 F 116 H 18 110/62 100 05/22/19 18:10 05/22/19 18:10 05/22/19 18:10 05/22/19 18:10 05/22/19 18:10 Doctor's Discharge - Discharge Referrals: NERISSA HILTON MD [Primary Care Provider] - Follow up as needed
--- NOTE | 2019-05-22 19:46 | RADIOLOGY REPORT (SQ) ---
EXAM DESCRIPTION: CERV SP 4 OR 5 VIEWS COMPLETED DATE/TIME: 05/22/2019 7:25 pm REASON FOR STUDY: neck pain, hx brachial plexus injury/scoliosis COMPARISON: None. NUMBER OF VIEWS: 4 TECHNIQUE: AP, lateral, obliques radiographic images acquired of the cervical spine. LIMITATIONS: None. FINDINGS: MINERALIZATION: Normal. ALIGNMENT: Anatomic. VERTEBRAE: Vertebral bodies of normal height. DISCS: No significant osteophytes or sclerosis. Disc height maintained. FORAMINA: No osteophytes or foraminal narrowing. LATERAL AND POSTERIOR ELEMENTS: Facets, lateral masses and spinous processes without significant find ings. HARDWARE: None in the spine. SOFT TISSUES: No masses or calcifications. Lung apices clear. OTHER: No other significant finding. IMPRESSION: NO SIGNIFICANT RADIOGRAPHIC FINDING IN THE CERVICAL SPINE. TECHNICAL DOCUMENTATION: JOB ID: [id number] [place]-72 2010 [employer]- All Rights Reserved Reading location - IP/workstation name: [email or web address]
[2019-05-22 20:20] LABS: ABSOLUTE BASOPHILS # (AUTO) 0.1 10^3/uL (0.0-0.2); ABSOLUTE EOSINOPHILS # (AUTO) 0.1 10^3/uL (0.0-0.6); ABSOLUTE LYMPHOCYTES (AUTO) 1.7 10^3/uL (0.5-4.7); ABSOLUTE MONOCYTES (AUTO) 0.5 10^3/uL (0.1-1.4); ABSOLUTE NEUT (AUTO) 5.6 10^3/uL (1.7-8.2); BASOPHILS % (AUTO) 0.8 % (0-2); EOSINOPHILS % (AUTO) 0.8 % (0-6); HEMATOCRIT 39.4 % (36.0-47.0); HEMOGLOBIN 12.9 g/dL (12.0-15.5); LYMPHOCYTES % (AUTO) 21.5 % (13-45); MEAN CORPUSCULAR HEMOGLOBIN 24.4 pg (27.0-33.4); MEAN CORPUSCULAR HGB CONC 32.8 g/dL (32.0-36.0); MEAN CORPUSCULAR VOLUME 74 fl (80-97); MONOCYTES % (AUTO) 6.8 % (3-13); PLATELET COUNT 319 10^3/uL (150-450); RED BLOOD COUNT 5.31 10^6/uL (3.72-5.28); RED CELL DISTRIBUTION WIDTH 17.8 % (11.5-14.0); SEGMENTED NEUTROPHILS % (AUTO) 70.1 % (42-78); TOTAL CELLS COUNTED % (AUTO) 100 %; WHITE BLOOD COUNT 7.9 10^3/uL (4.0-10.5)
[2019-05-22] MEDS ORDERED: KETOROLAC TROMETHAMINE INJ/PF 30 MG/1 ML SDV IV ONE (20:24)
[2019-05-22] MEDS ORDERED: DEXAMETHASONE SOD PHOS INJ 10 MG/1 ML VIAL IV ONE (20:25)
[2019-05-22 20:37] LABS: ANION GAP 17 (5-19); BLOOD UREA NITROGEN 18 mg/dL (7-20); CALCIUM 10.6 mg/dL (8.4-10.2); CARBON DIOXIDE 21 mmol/L (22-30); CHLORIDE 105 mmol/L (98-107); GLUCOSE 101 mg/dL (75-110); POTASSIUM 3.6 mmol/L (3.6-5.0)
--- NOTE | 2019-05-22 21:46 | ER Document Report ---
ED General - General Chief Complaint: Neck and Upper Back Pain Stated Complaint: SORE THROAT,SWELLING,NECK PAIN Time Seen by Provider: 05/22/19 18:19 Primary Care Provider: NERISSA HILTON MD [ACTIVE STAFF] - Follow up as needed Mode of Arrival: Ambulatory Notes: 23-year-old female presents to the emergency department with a complaint of pain in her right neck area with pain that radiates down into her arms and hands. She apparently was scratching when she had a sudden pain and tingling. She had a history of related trauma which resulted in injury to her arms and history of scoliosis. She denies new lower extremity symptoms or pain. TRAVEL OUTSIDE OF THE [place] IN LAST 30 DAYS: No - Related Data Allergies/Adverse Reactions: nickel Adverse Reaction (Verified 05/22/19 18:19) Past Medical History - Social History Smoking Status: Current Every Day Smoker Family History: Reviewed & Not Pertinent Patient has suicidal ideation: No Patient has homicidal ideation: No Renal/ Medical History: Denies: Hx Peritoneal Dialysis Musculoskeletal Medical History: Reports Hx Musculoskeletal Deformity - Chronic back pain Psychiatric Medical History: Reports: Hx Attention Deficit Hyperactivity Disorde r, Hx Bipolar Disorder, Hx Depression Past Surgical History: Reports: Hx Abdominal Surgery - esophagus, feeding tube, Hx Section - demise at 32wks Review of Systems - Review of Systems Notes: Constitutional: Negative for fever. HENT: + Tenderness in the right neck area Eyes: Negative for visual changes. Cardiovascular: Negative for chest pain. Respiratory: Negative for shortness of breath. Gastrointestinal: Negative for abdominal pain, vomiting or diarrhea. Genitourinary: Negative for dysuria. Musculoskeletal: Negative for back pain. Skin: Negative for rash. Neurological: + Numbness and tingling in the hands bilaterally, negative for headaches, no weakness 10 point ROS negative except as marked above and in HPI. Physical Exam - Vital signs Vitals: Temp Pulse Resp BP Pulse Ox 97.9 F 116 H 18 110/62 100 05/22/19 18:10 05/22/19 18:10 05/22/19 18:10 05/22/19 18:10 05/22/19 18:10 - Notes Notes: PHYSICAL EXAMINATION: Physical Exam: General: Pleasant well-nourished well-developed 23-year-old woman in no acute distress HEENT: NC/AT, pupils equal round and reactive to light, MM moist,nares clear, Neck: Tenderness in the right upper trapezius and right paracervical muscle group. Lungs: clear, no wheezing, no rales no rhonchi CVS: Regular rate and rhythm no murmur gallop or rub Abdomen: Soft active nontender, no masses, no hepatosplenomegaly Ext: No edema clubbing or cyanosis. Neuro: Alert and responsive, moving all 4 extremities on command, cranial nerves intact. Skin: Intact no open lesions, no rash PSYCH: Normal mood, normal affect. Course - Vital Signs Vital signs: Temp Pulse Resp BP Pulse Ox 97.9 F 116 H 18 110/62 100 05/22/19 18:10 05/22/19 18:10 05/22/19 18:10 05/22/19 18:10 05/22/19 18:10 - Laboratory Result Diagrams: 05/22/19 20:00 05/22/19 20:00 Laboratory results interpreted by me: 05/22/19 05/22/19 20:00 20:00 RBC 5.31 H MCV 74 L MCH 24.4 L RDW 17.8 H Carbon Dioxide 21 L Calcium 10.6 H 05/22/19 21:43 I have reviewed laboratory data and used this information for the treatment decisions regarding the patient. - Diagnostic Test Radiology reviewed: Image reviewed, Reports reviewed - Cervical spine x-ray: No acute fracture or dislocation noted. Discharge - Discharge Clinical Impression: Neck pain on right side, Cervical radiculopathy Condition: Good Disposition: HOME, SELF-CARE Additional Instructions: Please continue your gabapentin, muscle relaxant and follow-up with your doctor as needed. You may return to the emergency department if you have further difficulties or other concerns. Referrals: NERISSA HILTON MD [ACTIVE STAFF] - Follow up as needed
[2019-05-22 22:21] VITALS: BP 114/63
== END 2019-05-22 22:22 | disposition home or self-care (01) ==
LOC: ER 18:05
DX: M54.12 Radiculopathy, cervical region (principal); M54.2 Cervicalgia; F17.200 Nicotine dependence, unspecified, uncomplicated
CPT/HCPCS: 99283; 96361; 96374; 96375; 36415; 85025; 80048; 72050; J1885; J7030; J1100

== ENCOUNTER 2019-06-04 01:20 | Emergency (ER) | payer SELFPAY ==
[2019-06-04 05:48] LABS: APPEARANCE,URINE SLIGHTLY-CLOUDY; BILIRUBIN,URINE NEGATIVE (NEGATIVE); COLOR,URINE YELLOW; GLUCOSE, URINE NEGATIVE (NEGATIVE); KETONES,URINE TRACE mg/dL (NEGATIVE); LEUKOCYTE ESTERASE,URINE SMALL (NEGATIVE); NITRITE,URINE NEGATIVE (NEGATIVE); PROTEIN,URINE 30 mg/dL (NEGATIVE); URINE SPECIFIC GRAVITY 1.018
[2019-06-04 06:14] LABS: ABSOLUTE BASOPHILS # (AUTO) 0.1 10^3/uL (0.0-0.2); ABSOLUTE EOSINOPHILS # (AUTO) 0.1 10^3/uL (0.0-0.6); ABSOLUTE LYMPHOCYTES (AUTO) 3.7 10^3/uL (0.5-4.7); ABSOLUTE MONOCYTES (AUTO) 0.8 10^3/uL (0.1-1.4); ABSOLUTE NEUT (AUTO) 4.3 10^3/uL (1.7-8.2); BASOPHILS % (AUTO) 0.6 % (0-2); EOSINOPHILS % (AUTO) 1.6 % (0-6); HEMATOCRIT 35.2 % (36.0-47.0); HEMOGLOBIN 11.4 g/dL (12.0-15.5); LYMPHOCYTES % (AUTO) 40.8 % (13-45); MEAN CORPUSCULAR HEMOGLOBIN 24.6 pg (27.0-33.4); MEAN CORPUSCULAR HGB CONC 32.5 g/dL (32.0-36.0); MEAN CORPUSCULAR VOLUME 76 fl (80-97); MONOCYTES % (AUTO) 8.4 % (3-13); PLATELET COUNT 269 10^3/uL (150-450); RED BLOOD COUNT 4.65 10^6/uL (3.72-5.28); RED CELL DISTRIBUTION WIDTH 17.6 % (11.5-14.0); SEGMENTED NEUTROPHILS % (AUTO) 48.6 % (42-78); TOTAL CELLS COUNTED % (AUTO) 100 %
[2019-06-04 06:33] LABS: ALBUMIN 4.7 g/dL (3.5-5.0); ALKALINE PHOSPHATASE 75 U/L (38-126); ANION GAP 11 (5-19); ASPARTATE AMINO TRANSFERASE 28 U/L (14-36); BILIRUBIN,DIRECT 0.1 mg/dL (0.0-0.4); BILIRUBIN,TOTAL 0.9 mg/dL (0.2-1.3); BLOOD UREA NITROGEN 11 mg/dL (7-20); CALCIUM 9.7 mg/dL (8.4-10.2); CARBON DIOXIDE 19 mmol/L (22-30); CHLORIDE 111 mmol/L (98-107); CREATINE KINASE 112 U/L (30-135); GLUCOSE 73 mg/dL (75-110); TOTAL PROTEIN 7.4 g/dL (6.3-8.2)
[2019-06-04 06:34] LABS: CREATINE KINASE MB 1.47 ng/mL (<4.55)
[2019-06-04 06:35] LABS: TROPONIN I < 0.012 ng/mL
[2019-06-04 09:50] VITALS: BP 135/89
--- NOTE | 2019-06-04 23:37 | EKG REPORT ---
SEVERITY:- NORMAL ECG - SINUS RHYTHM : Confirmed by: Mary Kate Kevin 04-Jun-2019 23:36:53
== END 2019-06-04 09:25 | disposition left against medical advice (07) ==
LOC: ER 01:20
DX: Z53.21 Procedure and treatment not carried out due to patient leaving prior to being seen by health care provider (principal); R20.0 Anesthesia of skin
CPT/HCPCS: 36415; 80053; 81001; 81025; 82550; 82553; 84484; 85025; 93005; 93010

== ENCOUNTER 2019-09-19 13:30 | Emergency (ER) | payer SELFPAY ==
[2019-09-19 14:33] LABS: APPEARANCE,URINE SLIGHTLY-CLOUDY; BILIRUBIN,URINE NEGATIVE (NEGATIVE); COLOR,URINE YELLOW; GLUCOSE, URINE NEGATIVE (NEGATIVE); KETONES,URINE NEGATIVE (NEGATIVE); PROTEIN,URINE NEGATIVE (NEGATIVE); URINE SPECIFIC GRAVITY 1.021; UROBILINOGEN,URINE NEGATIVE mg/dL (<2.0)
--- NOTE | 2019-09-19 14:54 | ER Document Report ---
ED Medical Screen (RME) - General Chief Complaint: Urinary Problem Stated Complaint: URINARY ISSUE Time Seen by Provider: 09/19/19 13:57 Mode of Arrival: Ambulatory Information source: Patient Notes: HPI; 23-year-old female presents to the emergency room complaining of dysuria for the past week. Positive vaginal discharge, has tried cranberry juice without relief. Describes the symptoms as pressure. States she has vaginal discomfort as well. No other medications for symptoms. Last UTI approximately 1 year ago. No change in sexual partners. PE: Oriented x3, lungs are clear to auscultation without rales, rhonchi, wheezes.: Tachycardic without murmurs rubs or gallops, abdomen: Soft mild suprapubic and pelvic tenderness noted. Bowel sounds x4. I have greeted and performed a rapid initial assessment of this patient. A comprehensive ED assessment and evaluation of the patient, analysis of test results and completion of the medical decision making process will be conducted by additional ED providers. I have specifically instructed the patient or family members with the patient to immediately return to any nursing staff should anything change in the patient's condition or with their chief complaint. TRAVEL OUTSIDE OF THE [place] IN LAST 30 DAYS: No - Related Data Allergies/Adverse Reactions: nickel Adverse Reaction (Verified 05/22/19 18:19) Home Medications: gabapentin, muscle relaxer Past Medical History - Social History Frequency of alcohol use: Occasional Drug Abuse: None Renal/ Medical History: Denies: Hx Peritoneal Dialysis Musculoskeltal Medical History: Reports Hx Musculoskeletal Deformity - Chronic back pain Psychiatric Medical History: Reports: Hx Attention Deficit Hyperactivity Disorder, Hx Bipolar Disorder, Hx Depression Past Surgical History: Reports: Hx Abdominal Surgery - esophagus, feeding tube, Hx Section - demise at 32wks Physical Exam - Vital signs Vitals: Temp 98.6 F 09/19/19 13:30 Course - Vital Signs Vital signs: Temp Pulse Resp BP Pulse Ox 98.6 F 105 H 18 124/68 100 09/19/19 13:37 09/19/19 13:37 09/19/19 13:37 09/19/19 13:37 09/19/19 13:37 - Laboratory Laboratory results interpreted by me: 09/19/19 13:46 Leukocyte Esterase Rfl LARGE H
--- NOTE | 2019-09-19 15:43 | ER Document Report ---
ED General - General Chief Complaint: Urinary Problem Stated Complaint: URINARY ISSUE Time Seen by Provider: 09/19/19 13:57 Mode of Arrival: Ambulatory Information source: Patient Notes: Patient is a 23-year-old female presenting to the emergency department chief complaint of frequency and burning with urination. Patient states that she is also concerned for the possibility of an STD. Patient denies travel history trauma history sick contacts bad food exposure. TRAVEL OUTSIDE OF THE [place] IN LAST 30 DAYS: No - HPI Onset: Last week Onset/Duration: Sudden Quality of pain: Achy, Burning Severity: Mild Pain Level: 1 Associated symptoms: denies: Nonproductive cough, Productive cough, Nausea, Vomiting Exacerbated by: Denies Relieved by: Denies Similar symptoms previously: No Recently seen / treated by doctor: No - Related Data Allergies/Adverse Reactions: nickel Adverse Reaction (Verified 05/22/19 18:19) Home Medications: gabapentin, muscle relaxer Past Medical History - General Information source: Patient - Social History Smoking Status: Current Every Day Smoker Frequency of alcohol use: Occasional Drug Abuse: None Lives with: Spouse/Significant other Family History: Reviewed & Not Pertinent Patient has suicidal ideation: No Patient has homicidal ideation: No Neurological Medical History: Reports: Other - Brachial plexus syndrome Renal/ Medical History: Denies: Hx Peritoneal Dialysis Musculoskeletal Medical History: Reports Hx Musculoskeletal Deformity - Chronic back pain Psychiatric Medical History: Reports: Hx Attention Deficit Hyperactivity Disorder, Hx Bipolar Disorder, Hx Depression Past Surgical History: Reports: Hx Abdominal Surgery - esophagus, feeding tube, Hx Section - demise at 32wks Review of Systems - Review of Systems Notes: REVIEW OF SYSTEMS: CONSTITUTIONAL : Denies fever, chills, or sweats. Denies recent illness. EENT: Denies eye, ear, throat, or mouth pain or symptoms. Denies nasal or sinus congestion. CARDIOVASCULAR: Denies chest pain. RESPIRATORY: Denies cough, cold, or chest congestion. Denies shortness of breath, difficulty breathing, or wheezing. GASTROINTESTINAL: Denies abdominal pain. Denies nausea, vomiting, or diarrhea. Denies constipation. GENITOURINARY: Per HPI MUSCULOSKELETAL: Denies neck or back pain or joint pain or swelling. SKIN: Denies rash or skin lesions. HEMATOLOGIC : Denies easy bruising or bleeding. NEUROLOGICAL: Denies altered mental status or loss of consciousness. Denies headache. Denies weakness or paralysis or loss of use of either side. Denies problems with gait or speech. Denies sensory or motor loss. PSYCHIATRIC: Denies suicidal or homicidal ideations 10 Systems are negative unless otherwise specified above Physical Exam - Vital signs Vitals: Temp 98.6 F 09/19/19 13:30 - Notes Notes: PHYSICAL EXAMINATION: GENERAL: Well-appearing, well-nourished and in no acute distress. HEAD: Atraumatic, normocephalic. EYES: Pupils equal round and reactive to light, extraocular movements intact, sclera anicteric, conjunctiva are normal. ENT: nares patent, oropharynx clear without exudates. Moist mucous membranes. NECK: Normal range of motion, supple without lymphadenopathy, no appreciable JVD LUNGS: Lungs clear to auscultation bilaterally and equal. No wheezes rales or rhonchi. HEART: Regular rate and rhythm without murmurs ABDOMEN: Soft, nontender, normal bowel sounds. No guarding, no rebound. No masses appreciated. EXTREMITIES: Active full range of motion, no pitting or edema. No cyanosis. 2+ pulses x4 NEUROLOGICAL: No focal neurological deficits. Moves all extremities spontaneously and on command. SKIN: Warm, Dry, and intact. Normal turgor, no rashes or lesions noted. Course - Re-evaluation Re-evalutation: 09/19/19 17:02 Pelvic exam was performed with nurse in attendance. Speculum examination demonstrated no signs of trauma no vaginal wall tears however there was copious green discharge in the vault. Patient tolerated procedure. Lab results demonstrate positive yeast and positive bacterial vaginosis. Patient be given prescriptions for same and discharged home with follow-up as needed. Patient is aware of GC and Chlamydia still pending. - Vital Signs Vital signs: Temp Pulse Resp BP Pulse Ox 98.6 F 105 H 18 124/68 100 09/19/19 13:37 09/19/19 13:37 09/19/19 13:37 09/19/19 13:37 09/19/19 13:37 - Laboratory Result Diagrams: 09/19/19 16:01 09/19/19 16:01 Laboratory results interpreted by me: 09/19/19 09/19/19 13:46 16:01 MCV 78 L MCH 25.4 L RDW 16.8 H Leukocyte Esterase Rfl LARGE H Discharge - Discharge Clinical Impression: Bacterial vaginosis, Vaginal yeast infection Condition: Stable Disposition: HOME, SELF-CARE Additional Instructions: Vaginosis, Bacterial Your exam shows you have bacterial vaginosis. This condition is due to an overgrowth of bacteria in the vagina. Symptoms may include vaginal itching or pain, a smelly discharge, and sometimes burning with urination. Normally this is not transmitted by sexual contact. Vaginosis can be treated with oral or topical antibiotics. Metronidazole (Flagyl) pills are usually effective. Topical vaginal creams include Cleocin and Metro-Gel. You should avoid sexual contact until your symptoms are all better. Call the doctor if you develop pelvic pain, fever, or problems with urination, or if you don't improve as expected. Prescriptions: Metronidazole [Flagyl 500 mg Tablet] 500 mg PO BID #14 tablet
[2019-09-19 16:25] LABS: ABSOLUTE BASOPHILS # (AUTO) 0.1 10^3/uL (0.0-0.2); ABSOLUTE MONOCYTES (AUTO) 0.5 10^3/uL (0.1-1.4); ABSOLUTE NEUT (AUTO) 5.1 10^3/uL (1.7-8.2); BASOPHILS % (AUTO) 0.7 % (0-2); EOSINOPHILS % (AUTO) 0.6 % (0-6); HEMATOCRIT 37.6 % (36.0-47.0); HEMOGLOBIN 12.3 g/dL (12.0-15.5); LYMPHOCYTES % (AUTO) 26.2 % (13-45); MEAN CORPUSCULAR HEMOGLOBIN 25.4 pg (27.0-33.4); MEAN CORPUSCULAR HGB CONC 32.7 g/dL (32.0-36.0); MEAN CORPUSCULAR VOLUME 78 fl (80-97); MONOCYTES % (AUTO) 6.3 % (3-13); PLATELET COUNT 277 10^3/uL (150-450); RED BLOOD COUNT 4.85 10^6/uL (3.72-5.28); RED CELL DISTRIBUTION WIDTH 16.8 % (11.5-14.0); SEGMENTED NEUTROPHILS % (AUTO) 66.2 % (42-78); TOTAL CELLS COUNTED % (AUTO) 100 %; WHITE BLOOD COUNT 7.7 10^3/uL (4.0-10.5)
[2019-09-19 16:27] LABS: BACTERIA (WET MOUNT) 4+ BACTERIA SEEN; EPITHELIALS (WET MOUNT) 3+ EPITHELIALS SEEN; T.VAGINALIS (WET MOUNT) NO TRICHOMONAS SEEN; WBCS (WET MOUNT) 2+ WBCS SEEN; YEAST (WET MOUNT) YEAST SEEN
[2019-09-19 16:40] LABS: ALBUMIN 4.5 g/dL (3.5-5.0); ALKALINE PHOSPHATASE 69 U/L (38-126); ANION GAP 8 (5-19); ASPARTATE AMINO TRANSFERASE 21 U/L (14-36); BILIRUBIN,TOTAL 0.4 mg/dL (0.2-1.3); BLOOD UREA NITROGEN 14 mg/dL (7-20); CALCIUM 9.6 mg/dL (8.4-10.2); CARBON DIOXIDE 27 mmol/L (22-30); CHLORIDE 103 mmol/L (98-107); GLUCOSE 77 mg/dL (75-110); POTASSIUM 4.2 mmol/L (3.6-5.0); TOTAL PROTEIN 7.5 g/dL (6.3-8.2)
[2019-09-19] MEDS ORDERED: FLUCONAZOLE 100 MG TABLET PO ONE (17:07)
[2019-09-19 17:27] VITALS: BP 101/56
[2019-09-19 17:57] LABS: CHLAM PCR DETECTED (NOT DETECT)
== END 2019-09-19 17:26 | disposition home or self-care (01) ==
LOC: ER 13:30
DX: N76.0 Acute vaginitis (principal); B96.89 Other specified bacterial agents as the cause of diseases classified elsewhere; B37.3 Candidiasis of vulva and vagina; R39.198 Other difficulties with micturition; R35.0 Frequency of micturition; R30.9 Painful micturition, unspecified; Z79.899 Other long term (current) drug therapy; F17.200 Nicotine dependence, unspecified, uncomplicated
CPT/HCPCS: 36415; 80053; 81001; 81025; 83690; 85025; 87210; 87491; 87591; 99284

== ENCOUNTER 2019-10-26 18:40 | Emergency (ER) | payer SELFPAY ==
--- NOTE | 2019-10-26 19:42 | RADIOLOGY REPORT (SQ) ---
EXAM DESCRIPTION: CHEST SINGLE VIEW IMAGES COMPLETED DATE/TIME: 10/26/2019 6:20 pm REASON FOR STUDY: SOB COMPARISON: None. EXAM PARAMETERS: NUMBER OF VIEWS: One view. TECHNIQUE: Single frontal radiographic view of the chest acquired. RADIATION DOSE: NA LIMITATIONS: None. FINDINGS: LUNGS AND PLEURA: No opacities, masses or pneumothorax. No pleural effusion. MEDIASTINUM AND HILAR STRUCTURES: No masses. Contour normal. HEART AND VASCULAR STRUCTURES: Heart normal in size. Normal vasculature. BONES: No acute findings. HARDWARE: None in the chest. OTHER: No other significant finding. IMPRESSION: NO ACUTE RADIOGRAPHIC FINDING IN THE CHEST. TECHNICAL DOCUMENTATION: JOB ID: [id number] 2010 [employer]- All Rights Reserved Reading location - IP/workstation name: [email or web address]
--- NOTE | 2019-10-26 19:49 | ER Document Report ---
ED General - General Chief Complaint: Shortness Of Breath Stated Complaint: SHORTNESS OF BREATH/SORE THROAT Time Seen by Provider: 10/26/19 19:07 Notes: 24-year-old female presents emergency department complaining of 1 week worth of right-sided neck pain associated with 1 months worth of increasing difficulty swallowing and difficulty breathing due to pain and a sensation of swelling on the right side of her neck and in the back of her throat. States that she has a history of recurrent tonsillitis, states she always swabs negative for strep but then is then diagnosed with tonsillitis anyway and given amoxicillin. States that the symptoms get better and then come back within 1 to 2 days of stopping the amoxicillin. Patient states this is been going on constantly for over 4 years. States that she once saw ear nose and throat was told that she should have her tonsils taken out but then states she left the state and could not affo rd for the surgery so the surgery did not happen. States that the vocal to breathing is not shortness of breath, denies any cough, denies any abnormal sensation in her chest. Patient second complaint is she is having vaginal bleeding that is different than usual. Patient states that she normally has frequent spotting due to her Nexplanon and the spotting has become lessened compared to usual. It is not more than usual, it does not have an odor to it, there is not other increased vaginal discharge and there is not lower abdominal pain. Patient is not feeling dizzy or lightheaded. Does not have any dysuria. TRAVEL OUTSIDE OF THE [place] IN LAST 30 DAYS: No - Related Data Allergies/Adverse Reactions: nickel Adverse Reaction (Verified 05/22/19 18:19) Past Medical History - General Information source: Patient - Social History Smoking Status: Current Every Day Smoker Frequency of alcohol use: Occasional Drug Abuse: Marijuana Family History: Reviewed & Not Pertinent Renal/ Medical History: Denies: Hx Peritoneal Dialysis Musculoskeletal Medical History: Reports Hx Musculoskeletal Deformity - Chronic back pain Psychiatric Medical History: Reports: Hx Attention Deficit Hyperactivity Disorder, Hx Bipolar Disorder, Hx Depression Past Surgical History: Reports: Hx Abdominal Surgery - esophagus, feeding tube, Hx Section - demise at 32wks Review of Systems - Review of Systems Constitutional: No symptoms reported EENT: See HPI Cardiovascular: No symptoms reported Respiratory: No symptoms reported Genitourinary: No symptoms reported Female Genitourinary: See HPI, Vaginal bleeding. denies: Vaginal odor -: Yes All other systems reviewed and negative Physical Exam - Vital signs Vitals: Temp Pulse Resp BP Pulse Ox 98.7 F 79 16 126/76 H 100 10/26/19 19:00 10/26/19 19:00 10/26/19 19:00 10/26/19 19:00 10/26/19 19:00 Interpretation: Normal - Notes Notes: GENERAL: Alert, interacts well. No acute distress. HEAD: Normocephalic, atraumatic EYES: Pupils equal, round and reactive to light, extraocular movements intact. ENT: Oral mucosa moist, tongue midline. Nares patent, no nasal septal hematoma, TMs intact. Right tonsil larger than the left tonsil, this appears physiologic/developmental rather than acute, there is no erythema to it, there is no exudate, there is no postnasal drip. NECK: Full range of motion, supple, trachea midline. Right sternocleidomastoid muscle is enlarged and tender to palpation, there is no erythema. There is anterior cervical lymphadenopathy that is tender bilaterally. LUNGS: Clear to auscultation bilaterally, no wheezes, rales or rhonchi, no respiratory distress. HEART: Regular rate and rhythm, no murmurs, gallops, rubs. ABDOMEN: Soft, nontender, nondistended, bowel sounds present in all 4 quadrants. EXTREMITIES: Moves all 4 extremities spontaneously, no edema, radial and dorsalis pedis pulses 2/4 bilaterally. No cyanosis. NEUROLOGICAL: Alert and oriented x3, normal speech. PSYCH: Normal mood, normal affect. SKIN: Warm, Dry, normal turgor. Course - Re-evaluation Re-evalutation: 10/26/19 22:24 CBC unremarkable, BMP unremarkable, test negative. Chest X-Ray 10/26/19 00:00 IMPRESSION: NO ACUTE RADIOGRAPHIC FINDING IN THE CHEST. Soft Tissue Neck CT 10/26/19 19:42 IMPRESSION: 1. Mildly enlarged tonsils bilaterally unchanged and without suspicious abscess. Mildly enlarged adenoids also unchanged. 2. Current study demonstrates a greater enlargement of the uvula/posterior soft palate.. This appears to narrow the airway between the nasopharyngeal and oropharyngeal airways. There is mild reactive adenopathy in the neck bilaterally greater on the right. Right tonsil does appear larger than the left tonsil however this appears more physiologic than acute. There is no erythema and there is no exudate. No signs of active infection. Patient does have an enlarged right sternocleidomastoid muscle however this may be chronic culture per trophy due to injury with brachial plexopathy. Discussed with patient that for definitive treatment she will really need to follow-up with ear nose and throat as an outpatient. Currently given the mild enlargement including of the uvula and posterior soft palate on CT scan that is not appreciated on physical examination she will be given a short course of steroids to see if this alleviates some of her symptoms. There is no evidence of acute airway impingement at this time. Patient will be discharged home. - Vital Signs Vital signs: Temp Pulse Resp BP Pulse Ox 98.7 F 79 16 126/76 H 100 10/26/19 20:14 10/26/19 19:00 10/26/19 19:00 10/26/19 19:00 10/26/19 19:00 - Laboratory Result Diagrams: 10/26/19 20:40 10/26/19 20:40 Laboratory results interpreted by me: 10/26/19 20:40 MCV 78 L MCH 25.5 L RDW 15.8 H Discharge - Discharge Clinical Impression: Right tonsillar enlargement, Soft palate swelling Condition: Stable Disposition: HOME, SELF-CARE Additional Instructions: There is no evidence of active infection at this time. There is no evidence of abscess or infection, there is no indication for antibiotics. Your CAT scan does show a small amount of swelling that is slightly larger than has been seen in the past. I will treat you with steroids for the next 5 days to see this if this relieves any of your symptoms. It is however very important that you follow-up with your nose and throat as an outpatient, they will likely want to take a closer look at the area and make sure that there is no evidence of any sort of a tumor growing in this area. Please return to the emergency department should you develop worsening difficulty breathing, any difficulty swallowing or any new or concerning symptoms. Prescriptions: Prednisone [Deltasone 20 mg Tablet] 40 mg PO DAILY #10 tablet Referrals: AURORA MARIE MD [ACTIVE STAFF] - Follow up as needed
[2019-10-26 21:03] LABS: ABSOLUTE EOSINOPHILS # (AUTO) 0.1 10^3/uL (0.0-0.6); ABSOLUTE LYMPHOCYTES (AUTO) 2.6 10^3/uL (0.5-4.7); ABSOLUTE MONOCYTES (AUTO) 0.5 10^3/uL (0.1-1.4); BASOPHILS % (AUTO) 0.5 % (0-2); EOSINOPHILS % (AUTO) 0.8 % (0-6); HEMATOCRIT 38.7 % (36.0-47.0); HEMOGLOBIN 12.6 g/dL (12.0-15.5); LYMPHOCYTES % (AUTO) 31.9 % (13-45); MEAN CORPUSCULAR HEMOGLOBIN 25.5 pg (27.0-33.4); MEAN CORPUSCULAR HGB CONC 32.7 g/dL (32.0-36.0); MEAN CORPUSCULAR VOLUME 78 fl (80-97); MONOCYTES % (AUTO) 6.2 % (3-13); PLATELET COUNT 332 10^3/uL (150-450); RED BLOOD COUNT 4.96 10^6/uL (3.72-5.28); RED CELL DISTRIBUTION WIDTH 15.8 % (11.5-14.0); SEGMENTED NEUTROPHILS % (AUTO) 60.6 % (42-78); TOTAL CELLS COUNTED % (AUTO) 100 %; WHITE BLOOD COUNT 8.2 10^3/uL (4.0-10.5)
[2019-10-26 21:26] LABS: ANION GAP 10 (5-19); BLOOD UREA NITROGEN 11 mg/dL (7-20); CALCIUM 9.9 mg/dL (8.4-10.2); CARBON DIOXIDE 25 mmol/L (22-30); CHLORIDE 106 mmol/L (98-107); GLUCOSE 94 mg/dL (75-110); POTASSIUM 3.7 mmol/L (3.6-5.0)
--- NOTE | 2019-10-26 22:00 | RADIOLOGY REPORT (SQ) ---
EXAM DESCRIPTION: CLINICAL HISTORY: 24 years Female diff swallowing, breathing, pain on R side neck COMPARISON: CT soft tissues of neck from 05/14/2019. TECHNIQUE: Axial images with 75 mL of Omnipaque 350. Sagittal coronal reconstruction. This exam was performed according to our departmental dose-optimization program, which includes automated exposure control, adjustment of the mA and/or kV according to patient size and/or use of iterative reconstruction technique.. FINDINGS: Mild prominence of both tonsils similar to CT from 05/14/2019. No suspicious tonsillar abscess. Current study demonstrates greater thickening of the uvula. Series 200 images 46-50. There is prominence of the adenoids which is unchanged. Mildly enlarged lymph nodes, right side greater than left seen in the upper neck bilaterally. Series 3 images 33-41. Minimally increased since of 05/14/2019. No suspicious vascular abnormalities. Salivary glands are unremarkable. No suspicious prevertebral soft tissue abnormality or laryngeal abnormality. Thyroid gland is unremarkable. Limited images of the upper chest are unremarkable. IMPRESSION: 1. Mildly enlarged tonsils bilaterally unchanged and without suspicious abscess. Mildly enlarged adenoids also unchanged. 2. Current study demonstrates a greater enlargement of the uvula/posterior soft palate.. This appears to narrow the airway between the nasopharyngeal and oropharyngeal airways. There is mild reactive adenopathy in the neck bilaterally greater on the right.
[2019-10-26 23:16] VITALS: BP 120/77
== END 2019-10-26 23:41 | disposition home or self-care (01) ==
LOC: ER 18:40
DX: J35.1 Hypertrophy of tonsils (principal); R06.02 Shortness of breath; J02.9 Acute pharyngitis, unspecified; M54.2 Cervicalgia; R22.1 Localized swelling, mass and lump, neck; N89.8 Other specified noninflammatory disorders of vagina; R10.30 Lower abdominal pain, unspecified; F17.200 Nicotine dependence, unspecified, uncomplicated
CPT/HCPCS: 36415; 70491; 71045; 80048; 84703; 85025; 99284

== ENCOUNTER 2019-11-23 19:57 | Emergency (ER) | payer BC, MEDICAID ==
[2019-11-23 20:15] VITALS: BP 123/78
--- NOTE | 2019-11-23 20:44 | ER Document Report ---
ED Medical Screen (RME) - General Chief Complaint: Vaginal Bleeding Stated Complaint: IRREGULAR VAGINAL BLEEDING Time Seen by Provider: 11/23/19 20:25 TRAVEL OUTSIDE OF THE [place] IN LAST 30 DAYS: No - HPI Notes: 11/23/19 20:35 24 yr old female presents to ER for complaints of intermittent pelvic cramping and vaginal bleeding for last two months. has not been seen by a pcp for this issue or scenario writer for these issues. pt has the nexplanon 2 years ago and stiffness at times has had issues with control that she had implanted 2 years ago. Patient states that she has had issues with UTI, yeast infection, BV. pt is concerned that her excessive bleeding is going to cause her to be anemic. states she goes through 5-7 tampons a day. denies any n/v/d, abd pain, chest pain. I have greeted and performed a rapid initial assessment of this patient. A comprehensive ED assessment and evaluation of the patient, analysis of test results and completion of the medical decision making process will be conducted by additional ED providers. PHYSICAL EXAMINATION: GENERAL: Well-appearing, well-nourished and in no acute distress. CV: s1, s2 regular LUNGS: No respiratory distress abd: lower abd pain, no cva tenderness - Related Data Allergies/Adverse Reactions: nickel Adverse Reaction (Verified 11/23/19 20:24) Past Medical History - Social History Frequency of alcohol use: None Drug Abuse: Marijuana Renal/ Medical History: Denies: Hx Peritoneal Dialysis Musculoskeltal Medical History: Reports Hx Musculoskeletal Deformity - Chronic back pain Psychiatric Medical History: Reports: Hx Attention Deficit Hyperactivity Disorder, Hx Bipolar Disorder, Hx Depression Past Surgical History: Reports: Hx Abdominal Surgery - esophagus, feeding tube, Hx Section - demise at 32wks Physical Exam - Vital signs Vitals: Temp Pulse Resp BP Pulse Ox 98.9 F 87 16 123/78 100 11/23/19 20:13 11/23/19 20:13 11/23/19 20:13 11/23/19 20:13 11/23/19 20:13 Course - Vital Signs Vital signs: Temp Pulse Resp BP Pulse Ox 98.9 F 87 16 123/78 100 11/23/19 20:13 11/23/19 20:13 11/23/19 20:13 11/23/19 20:13 11/23/19 20:13
[2019-11-23 21:15] LABS: ABSOLUTE EOSINOPHILS # (AUTO) 0.1 10^3/uL (0.0-0.6); ABSOLUTE LYMPHOCYTES (AUTO) 1.9 10^3/uL (0.5-4.7); ABSOLUTE MONOCYTES (AUTO) 0.5 10^3/uL (0.1-1.4); ABSOLUTE NEUT (AUTO) 5.7 10^3/uL (1.7-8.2); BASOPHILS % (AUTO) 0.3 % (0-2); EOSINOPHILS % (AUTO) 1.2 % (0-6); HEMATOCRIT 36.2 % (36.0-47.0); HEMOGLOBIN 11.9 g/dL (12.0-15.5); LYMPHOCYTES % (AUTO) 23.3 % (13-45); MEAN CORPUSCULAR HEMOGLOBIN 25.9 pg (27.0-33.4); MEAN CORPUSCULAR HGB CONC 32.8 g/dL (32.0-36.0); MEAN CORPUSCULAR VOLUME 79 fl (80-97); MONOCYTES % (AUTO) 6.2 % (3-13); PLATELET COUNT 296 10^3/uL (150-450); RED BLOOD COUNT 4.58 10^6/uL (3.72-5.28); RED CELL DISTRIBUTION WIDTH 16.1 % (11.5-14.0); TOTAL CELLS COUNTED % (AUTO) 100 %; WHITE BLOOD COUNT 8.3 10^3/uL (4.0-10.5)
[2019-11-23 21:42] LABS: ALBUMIN 4.8 g/dL (3.5-5.0); ALKALINE PHOSPHATASE 96 U/L (38-126); ANION GAP 7 (5-19); ASPARTATE AMINO TRANSFERASE 25 U/L (14-36); BILIRUBIN,TOTAL 0.2 mg/dL (0.2-1.3); BLOOD UREA NITROGEN 10 mg/dL (7-20); CALCIUM 9.4 mg/dL (8.4-10.2); CARBON DIOXIDE 26 mmol/L (22-30); CHLORIDE 108 mmol/L (98-107); GLUCOSE 104 mg/dL (75-110); POTASSIUM 4.5 mmol/L (3.6-5.0); TOTAL PROTEIN 7.9 g/dL (6.3-8.2)
== END 2019-11-24 03:20 | disposition left against medical advice (07) ==
LOC: ER 19:57
DX: Z53.20 Procedure and treatment not carried out because of patient's decision for unspecified reasons (principal); N93.9 Abnormal uterine and vaginal bleeding, unspecified; R10.2 Pelvic and perineal pain; Z79.899 Other long term (current) drug therapy; F12.10 Cannabis abuse, uncomplicated
CPT/HCPCS: 36415; 80053; 85025; 99281

== ENCOUNTER 2019-12-08 06:56 | Emergency (ER) | payer SELFPAY ==
--- NOTE | 2019-12-08 08:51 | ER Document Report ---
ED GI/ - General Chief Complaint: Vaginal Discharge Stated Complaint: FLANK PAIN,ABDOMINAL PAIN,VAGINAL DISCOMFORT Time Seen by Provider: 12/08/19 08:46 TRAVEL OUTSIDE OF THE [place] IN LAST 30 DAYS: No - HPI Notes: 12/08/19 09:06 22-year-old female presents with vaginal discharge. Patient states she has had a yellow vaginal discharge for the past week. It sometimes is white coloration. Usually is thick, though occasionally thin. She reports that she has had multiple infections in the past. She recently had chlamydia, BV, and a yeast infection in September. She reports that she completed 7 days of doxycycline treatment. She states that this discharge is similar to chlamydia, though not as bad. She has a little bit of lower pelvic cramping, though states that is not as bad as last time she had an STD. She denies vaginal bleeding. She denies nausea or vomiting. No fever. She does have unprotected intercourse. - Related Data Allergies/Adverse Reactions: nickel Adverse Reaction (Verified 12/08/19 07:05) Past Medical History - General Last Menstrual Period: 11/21/2019 - Social History Smoking Status: Current Every Day Smoker Frequency of alcohol use: Occasional Drug Abuse: Marijuana Family History: Reviewed & Not Pertinent Patient has homicidal ideation: No Renal/ Medical History: Denies: Hx Peritoneal Dialysis Musculoskeletal Medical History: Reports Hx Musculoskeletal Deformity - Chronic back pain Psychiatric Medical History: Reports: Hx Attention Deficit Hyperactivity Disorder, Hx Bipolar Disorder, Hx Depression Past Surgical History: Reports: Hx Abdominal Surgery - esophagus, feeding tube, Hx Section - x2: demise at 32wks, premature c section Review of Systems - Review of Systems Constitutional: denies: Fever EENT: No symptoms reported Cardiovascular: No symptoms reported Respiratory: No symptoms reported Gastrointestinal: denies: Nausea, Vomiting Genitourinary: denies: Dysuria Female Genitourinary: Vaginal discharge. denies: Vaginal bleeding Musculoskeletal: No symptoms reported Skin: No symptoms reported Hematologic/Lymphatic: No symptoms reported Physical Exam - Vital signs Vitals: Temp Pulse Resp BP Pulse Ox 98.8 F 79 16 124/81 100 12/08/19 07:00 12/08/19 07:00 12/08/19 07:00 12/08/19 07:00 12/08/19 07:00 Interpretation: Normal - General General appearance: Appears well, Alert In distress: None - HEENT Head: Normocephalic, Atraumatic Eyes: Normal - Respiratory Respiratory status: No respiratory distress - Cardiovascular Rhythm: Regular - Abdominal Tenderness: Nontender - Genitourinary External exam: No: Lesions, Vesicles Speculum exam: Vaginal discharge Vaginal bleeding: None Bimanuel exam: No: Cervical motion tender, Adnexal tenderness Notes: Copious yellow discharge in vaginal vault, seem to be emanating from cervix. Cervix does not exhibit any lesions or friability. No tenderness found with bimanual exam. Swabs collected. - Extremities General lower extremity: Normal inspection - Neurological Neuro grossly intact: Yes Orientation: AAOx4 [place] Coma Scale Verbal: Oriented - Psychological Associated symptoms: Normal affect - Skin Skin Temperature: Warm Course - Re-evaluation Re-evalutation: 12/08/19 09:19 24-year-old female here for concerns for sexually transmitted disease given her yellow vaginal discharge, has had multiple in the past. She is afebrile and nontoxic-appearing. Pelvic exam did reveal a discharge therefore suspecting infection such as chlamydia or gonorrhea, BV a possibility as well. No CMT or tenderness to suggest PID at this time. Discussed with patient, will treat em pirically with Rocephin and azithromycin. Swabs to be sent and discussed follow-up on results. Discussed with her using protection during intercourse and having her partner tested and possibly treated as well. 12/08/19 09:20 12/08/19 09:58 Updated patient on results. We discussed that the gonorrhea chlamydia swab is pending though she received empiric treatment. She verbalized understanding. Have written a prescription for doxycycline, discussed with her to start this in 2 to 3 days if she is still experiencing symptoms. Encouraged follow-up. We discussed safe sexual practices and need for partner to be evaluated. Return precautions given, stable at time of discharge. - Vital Signs Vital signs: Temp Pulse Resp BP Pulse Ox 98.8 F 79 16 124/81 100 12/08/19 07:00 12/08/19 07:00 12/08/19 07:00 12/08/19 07:00 12/08/19 07:00 - Laboratory Laboratory results interpreted by me: 12/08/19 09:00 Ur Leukocyte Esterase LARGE H Urine is not suggestive of UTI. Does have pyuria which can suggest STD. negative. No trichomonas or yeast seen. Discharge - Discharge Clinical Impression: Vaginal discharge Condition: Stable Disposition: HOME, SELF-CARE Additional Instructions: You received empiric treatment today for chlamydia and gonorrhea. You will be called if your swab is positive. Please have your partner tested as well. Please refrain from unprotected intercourse for at least 14 days. A prescription for doxycycline has been sent to your pharmacy, if you are still experiencing symptoms in 2 to 3 days, please fill the prescription. Please have follow-up with your PCP or return to ED for worsening symptoms. Prescriptions: Doxycycline Monohydrate 100 mg PO BID #20 capsule
[2019-12-08] MEDS ORDERED: AZITHROMYCIN 250 MG TABLET PO ONE (09:00)
[2019-12-08] MEDS ORDERED: CEFTRIAXONE INJ 250 MG VIAL IM ONE (09:00)
[2019-12-08] MEDS ORDERED: LIDOCAINE 1% INJ (10 MG/ML) 10 ML MDV IM ONE (09:09)
[2019-12-08] MEDS ORDERED: LIDOCAINE 1% INJ-PF (10 MG/ML) 30 ML SDV ONE (09:15)
[2019-12-08 09:22] LABS: RBCS (WET MOUNT) NO RBCS SEEN; T.VAGINALIS (WET MOUNT) NO TRICHOMONAS SEEN; WBCS (WET MOUNT) RARE WBCS SEEN; YEAST (WET MOUNT) NO YEAST SEEN
[2019-12-08 09:24] LABS: APPEARANCE,URINE SLIGHTLY-CLOUDY; BILIRUBIN,URINE NEGATIVE (NEGATIVE); COLOR,URINE YELLOW; GLUCOSE, URINE NEGATIVE (NEGATIVE); KETONES,URINE NEGATIVE (NEGATIVE); LEUKOCYTE ESTERASE,URINE LARGE (NEGATIVE); NITRITE,URINE NEGATIVE (NEGATIVE); PROTEIN,URINE NEGATIVE (NEGATIVE); URINE SPECIFIC GRAVITY 1.015; UROBILINOGEN,URINE NEGATIVE mg/dL (<2.0)
[2019-12-08 10:05] VITALS: BP 109/74
[2019-12-08 10:45] LABS: CHLAM PCR NOT DETECTED (NOT DETECT)
--- NOTE | 2019-12-08 14:50 | ER Document Report ---
Doctor's Note Notes: 12/08/19 14:49 After discharge swabs have resulted, negative gonorrhea chlamydia. Gram stain is suggestive of BV. Flagyl 500 twice daily x7 days sent to pharmacy.
--- NOTE | 2019-12-08 14:54 | ER Document Report ---
Doctor's Note Notes: 12/08/19 14:53 Patient was called and updated about results and new prescription.
== END 2019-12-08 10:07 | disposition home or self-care (01) ==
LOC: ER 06:56
DX: N89.8 Other specified noninflammatory disorders of vagina (principal); R10.9 Unspecified abdominal pain; R10.2 Pelvic and perineal pain
CPT/HCPCS: 99284; 96372; 87205; 87210; 81025; 81001; 87491; 87591; J0696; 36415